=== PATIENT | male | born 1990 | race Caucasian/White ===

== ENCOUNTER 2024-02-02 13:54 | Emergency (ER) | payer OTHER ==
[2024-02-02 14:27] LABS: Appearance,Urine Clear (Clear); Bilirubin,Urine Negative (Negative); Blood,Urine Negative (Negative); Color,Urine Yellow; Glucose,Urine (UA) Negative (Negative); Ketones,Urine Negative (Negative); Leukocyte Esterase,Urine Negative (Negative); Nitrite,Urine Negative (Negative); Protein,Urine Negative (Negative); Specific Gravity,Urine 1.018 (1.001-1.035); Urobilinogen,Urine <2.0 mg/dL (<2.0)
--- NOTE | 2024-02-02 15:39 | US ---
EXAMINATION TYPE: US scrotum with doppler. Grayscale and color Doppler Duplex imaging performed of aneta emerson scrotum. DATE OF EXAM: 02/02/2024 COMPARISON: NONE CLINICAL INDICATION: Male, 33 years old with history of pain; has Crohn's "s disease edema. EXAM MEASUREMENTS: TESTICLES: Right Testicle: 3.9 x 2.2 x 2.5 cm Left Testicle: 3.5 x 2.0 x 3.1 cm EPIDIDYMIS HEAD: Right Epididymis: .9 x .8 x 1.3 cm Left Epididymis: .7 x .5 x .8 cm Doppler performed to assess for testicular vascularity; good bilateral. This may be slightly increase d on the right. Color flow and waveforms are seen. There is no evidence of testicular torsion. Presence of hydroceles: yes right side Presence of varicoceles: no IMPRESSION: Mild asymmetric increased vascular flow, correlate for epididymoorchitis. No evidence for intratesticular mass. Small right hydrocele. [facility], Workstation: [id number], 02/02/2024 3:36 PM
[2024-02-02] MEDS: SODIUM CHLORIDE 0.9% 1,000 ML IV STA (15:56)
[2024-02-02] MEDS: ACETAMINOPHEN TAB 500 MG TAB PO STA (15:57)
[2024-02-02 16:08] LABS: Anisocytosis Slight; Basophils % (A) 0 %; Eosinophils # (A) 0.2 k/uL (0-0.7); Eosinophils % (A) 2 %; HCT 39.5 % (39.0-53.0); HGB 12.8 gm/dL (13.0-17.5); Hypochromasia Slight; Lymphocytes # (A) 1.2 k/uL (1.0-4.8); Lymphocytes % (A) 13 %; MCH 26.2 pg (25.0-35.0); MCHC 32.4 g/dL (31.0-37.0); MCV 80.9 fL (80.0-100.0); Mean Platelet Volume 6.6; Microcytosis Slight; Monocytes # (A) 0.5 k/uL (0-1.0); Monocytes % (A) 5 %; Neutrophils # (A) 7.2 k/uL (1.3-7.7); Neutrophils % (A) 79 %; Platelet Count 371 k/uL (150-450); Poikilocytosis Slight; RBC 4.89 m/uL (4.30-5.90); RDW 16.4 % (11.5-15.5); WBC 9.1 k/uL (3.8-10.6)
[2024-02-02 16:19] LABS: ALT 28 U/L (4-49); AST 32 U/L (17-59); African American GFR (CKD) >90 (>60 ml/min/1.73 sqM); Albumin 4.4 g/dL (3.5-5.0); Alkaline Phosphatase 72 U/L (38-126); Amylase 57 U/L (30-110); Anion Gap 10 mmol/L; Blood Urea Nitrogen 11 mg/dL (9-20); Calcium 9.6 mg/dL (8.4-10.2); Carbon Dioxide 25 mmol/L (22-30); Chloride 106 mmol/L (98-107); Glucose 82 mg/dL (74-99); Lipase 261 U/L (23-300); Non-African American GFR(CKD) >90 (>60 ml/min/1.73 sqM); Potassium 4.1 mmol/L (3.5-5.1); Sodium 141 mmol/L (137-145); Total Bilirubin 0.5 mg/dL (0.2-1.3); Total Protein 7.9 g/dL (6.3-8.2)
--- NOTE | 2024-02-02 16:58 | ED ---
Male Urogenital HPI - General Chief complaint: Urogenital Stated complaint: Crohn's Flare/Swollen Testicles Time Seen by Provider: 02/02/24 16:57 Source: patient, RN notes reviewed Mode of arrival: ambulatory Limitations: no limitations - History of Present Illness Initial comments: 33-year-old male presented to the ER with a chief complaint of testicular swelling and abdominal pain. Patient has a past medical history significant of Crohn's disease and has a colostomy. Patient reports he is currently residing at [place] for alcohol abuse. He has been there approximately 2 weeks. Patient reports for the past week he has been endorsing abdominal discomfort. Patient reports he has been having normal output of colostomy. He denies any hematochezia or melena. States for the past day he has been noticing pain and swelling to right testicle. Denies any injuries or traumas. Denies any urinary complaints. Denies any concern of STDs. Patient denies any fevers or chills. No other complaints. - Related Data Previous Rx's Medication Instructions Recorded Amoxic-Pot Clav 875-125Mg 1 tab PO BID 1 Days #14 tab 02/02/24 [Augmentin 875-125] levoFLOXacin 500 mg PO DAILY #10 tab 02/02/24 Allergies Allergy/AdvReac Type Severity Reaction Status Date / Time No Known Allergies Allergy Verified 02/02/24 14:02 Review of Systems ROS Statement: Those systems with pertinent positive or pertinent negative responses have been documented in the HPI. ROS Other: All systems not noted in ROS Statement are negative. Past Medical History Additional Past Medical History / Comment(s): chrohns disease History of Any Multi-Drug Resistant Organisms: None Reported Additional Past Surgical History / Comment(s): colostomy Past Psychological History: No Psychological Hx Reported Smoking Status: Current every day smoker Past Alcohol Use History: Abuse Past Drug Use History: None Reported General Exam Limitations: no limitations General appearance: alert, in no apparent distress Respiratory exam: Present: normal lung sounds bilaterally. Absent: respiratory distress, wheezes, rales, rhonchi, stridor Cardiovascular Exam: Present: regular rate, normal rhythm, normal heart sounds. Absent: systolic murmur, diastolic murmur, rubs, gallop, clicks GI/Abdominal exam: Present: soft, tenderness (Left upper quadrant tenderness. colostomy in place), normal bowel sounds exam: Present: testicular tenderness (Right), other (There was an juan f thematous rash surrounding scrotal region which appears chronic in nature) Neurological exam: Present: alert, oriented X3, CN II-XII intact Skin exam: Present: warm, dry, intact, normal color. Absent: rash Course Vital Signs 02/02/24 02/02/24 14:00 19:05 Temperature 97.5 F L 98.1 F Pulse Rate 77 71 Respiratory 20 18 Rate Blood Pressure 119/81 126/79 O2 Sat by Pulse 99 98 Oximetry Medical Decision Making - Medical Decision Making Was pt. sent in by a medical professional or institution (, PA, SALES P[employer]TER, urgent care, hospital, or snf...) When possible be specific @ -[facility] for evaluation of testicular pain. Did you speak to anyone other than the patient for history (EMS, parent, family, police, friend...)? What history was obtained from this source @ -No Did you review nursing and triage notes (agree or disagree)? Why? @ -I reviewed and agree with nursing and triage notes Were old charts reviewed (outside hosp., previous admission, EMS record, old EKG, old radiological studies, urgent care reports/EKG's, snf records)? Report findings @ -No old charts were reviewed Differential Diagnosis (chest pain, altered mental status, abdominal pain women, abdominal pain men, vaginal bleeding, weakness, fever, dyspnea, syncope, headache, dizziness, GI bleed, back pain, seizure, CVA, palpatations, mental health, musculoskeletal)? @ -Differential Abdominal Pain Men:Appendicitis, cholecystitis, diverticulosis, ischemic bowel, pancreatitis, hepatitis, UTI, gastroenteritis, AAA, incarcerated hernia, bowel obstruction, constipation, inflammatory bowel, hepatitis, peptic ulcer disease, splenic infarction, perforated viscus, testicular torsion, this is not meant to be an all-inclusive list EKG interpreted by me (3pts min.). @ -None done X-rays interpreted by me (1pt min.). @ -None done CT interpreted by me (1pt min.). @ -CT abdomen pelvis showing left lower quadrant loop colostomy. There is mild wall thickening of the left upper quadrant suggestive of colitis. No evidence of organizing fluid collection or abscess. No free air. U/S interpreted by me (1pt. min.). @ -Scrotal ultrasound showing mild asymmetric increased vascular flow concerning of epididymoorchitis. No evidence of intratesticular mass. What testing was considered but not performed or refused? (CT, X-rays, U/S, labs)? Why? @ -None What meds were considered but not given or refused? Why? @ -None Did you discuss the management of the patient with other professionals (professionals i.e. Dr., PA, SAL[employer]TER, lab, RT, psych nurse, social services director, baking assistant, teacher, surveillance dual rate officer, case manager specialist)? Give summary @ -No Was smoking cessation discussed for >3mins.? @ -No Was critical care preformed (if so, how long)? @ -No Were there social determinants of health that impacted care today? How? (Homelessness, low income, unemployed, alcoholism, drug addiction, transportation, low edu. Level, literacy, decrease access to med. care, detention, rehab)? @ -Patient is currently residing at [place] for alcoholism. Was there de-escalation of care discussed even if they declined (Discuss DNR or withdrawal of care, Hospice)? DNR status @ -No What co-morbidities impacted this encounter? (DM, HTN, Smoking, COPD, CAD, Ca ncer, CVA, ARF, Chemo, Hep., AIDS, mental health diagnosis, sleep apnea, morbid obesity)? @ -Crohn's disease Was patient admitted / discharged? Hospital course, mention meds given and route, prescriptions, significant lab abnormalities, going to OR and other pertinent info. @ -Discharge. 33-year-old male presented to ER with a chief complaint of abdominal pain and testicular swelling/pain. Patient is currently residing at [place] for alcoholism. History and physical exam completed. Vitals within normal limits. Patient in no signs acute distress but does appear uncomfortable on exam. There is tenderness to the left upper quadrant with normal bowel sounds. No rebound or guarding. Laboratory studies obtained unremarkable. Urinalysis unremarkable. Gonorrhea, chlamydia and trichomonas urine test sent and pending. Scrotal ultrasound concerning of epididy moorchitis. No evidence of intratesticular mass. Patient will be treated with IV Rocephin prior to discharge and discharged with a prescription of levofloxacin for epididymitis. Due to abdominal pain, tenderness and patient's history of Crohn's disease CT abdomen pelvis obtained and concerning of colitis. Patient was started on Augmentin for colitis. Patient received symptomatic radha atment in the ER, with improvement. Strict return parameters discussed. Patient discharged in stable condition with follow-up to PCP and urology. Patient verbally expressed understanding agree with care plan. Patient is eager for discharge and asking for sandwich and chips prior to leaving. Case discussed with ED attending, Dr. Wallis. Undiagnosed new problem with uncertain prognosis? @ -No Drug Therapy requiring intensive monitoring for toxicity (Heparin, Nitro, Insulin, Cardizem)? @ -No Were any procedures done? @ -No Diagnosis/symptom? @ -Colitis/epididymootchitis Acute, or Chronic, or Acute on Chronic? @ -Acute Uncomplicated (without systemic symptoms) or Complicated (systemic symptoms)? @ -Complicated Side effects of treatment? @ -No Exacerbation, Progression, or Severe Exacerbation? @ -No Poses a threat to life or bodily function? How? (Chest pain, [place], [place], pneumonia, PE, COPD, DKA, ARF, appy, cholecystitis, CVA, Diverticulitis, Homicidal, Suicidal, threat to staff... and all critical care pts) @ -Yes, infection can lead to sepsis which can lead to endorgan dysfunction which is life-threatening. - Lab Data Result diagrams: 02/02/24 15:46 02/02/24 15:46 Lab Results 02/02/24 02/02/24 02/02/24 Range/Units 14:06 14:06 15:46 WBC 9.1 (3.8-10.6) k/uL RBC 4.89 (4.30-5.90) m/uL Hgb 12.8 L (13.0-17.5) gm/dL Hct 39.5 (39.0-53.0) % MCV 80.9 (80.0-100.0) fL MCH 26.2 (25.0-35.0) pg MCHC 32.4 (31.0-37.0) g/dL RDW 16.4 H (11.5-15.5) % Plt Count 371 (150-450) k/uL MPV 6.6 Neutrophils % 79 % Lymphocytes % 13 % Monocytes % 5 % Eosinophils % 2 % Basophils % 0 % Neutrophils # 7.2 (1.3-7.7) k/uL Lymphocytes # 1.2 (1.0-4.8) k/uL Monocytes # 0.5 (0-1.0) k/uL Eosinophils # 0.2 (0-0.7) k/uL Basophils # 0.0 (0-0.2) k/uL Hypochromasia Slight Poikilocytosis Slight Anisocytosis Slight Microcytosis Slight Sodium (137-145) mmol/L Potassium (3.5-5.1) mmol/L Chloride (98-107) mmol/L Carbon Dioxide (22-30) mmol/L Anion Gap mmol/L BUN (9-20) mg/dL Creatinine (0.66-1.25) mg/dL Est GFR (CKD-EPI)AfAm (>60 ml/min/1.73 sqM) Est GFR (CKD-EPI)NonAf (>60 ml/min/1.73 sqM) Glucose (74-99) mg/dL Plasma Lactic Acid Patrice (0.7-2.0) mmol/L Calcium (8.4-10.2) mg/dL Total Bilirubin (0.2-1.3) mg/dL AST (17-59) U/L ALT (4-49) U/L Alkaline Phosphatase (38-126) U/L Total Protein (6.3-8.2) g/dL Albumin (3.5-5.0) g/dL Amylase (30-110) U/L Lipase (23-300) U/L Urine Color Yellow Urine Appearance Clear (Clear) Urine pH 6.0 (5.0-8.0) Ur Specific [place] 1.018 (1.001-1.035) Urine Protein Negative (Negative) Urine Glucose (UA) Negative (Negative) Urine Ketones Negative (Negative) Urine Blood Negative (Negative) Urine Nitrite Negative (Negative) Urine Bilirubin Negative (Negative) Urine Urobilinogen <2.0 (<2.0) mg/dL Ur Leukocyte Esterase Negative (Negative) Chlamydia DNA (PCR) Negative (Negative) N.gonorrhoeae DNA Probe Negative (Negative) 02/02/24 02/02/24 Range/Units 15:46 15:46 WBC (3.8-10.6) k/uL RBC (4.30-5.90) m/uL Hgb (13.0-17.5) gm/dL Hct (39.0-53.0) % MCV (80.0-100.0) fL MCH (25.0-35.0) pg MCHC (31.0-37.0) g/dL RDW (11.5-15.5) % Plt Count (150-450) k/uL MPV Neutrophils % % Lymphocytes % % Monocytes % % Eosinophils % % Basophils % % Neutrophils # (1.3-7.7) k/uL Lymphocytes # (1.0-4.8) k/uL Monocytes # (0-1.0) k/uL Eosinophils # (0-0.7) k/uL Basophils # (0-0.2) k/uL Hypochromasia Poikilocytosis Anisocytosis Microcytosis Sodium 141 (137-145) mmol/L Potassium 4.1 (3.5-5.1) mmol/L Chloride 106 (98-107) mmol/L Carbon Dioxide 25 (22-30) mmol/L Anion Gap 10 mmol/L BUN 11 (9-20) mg/dL Creatinine 0.79 (0.66-1.25) mg/dL Est GFR (CKD-EPI)AfAm >90 (>60 ml/min/1.73 sqM) Est GFR (CKD-EPI)NonAf >90 (>60 ml/min/1.73 sqM) Glucose 82 (74-99) mg/dL Plasma Lactic Acid Patrice 0.7 (0.7-2.0) mmol/L Calcium 9.6 (8.4-10.2) mg/dL Total Bilirubin 0.5 (0.2-1.3) mg/dL AST 32 (17-59) U/L ALT 28 (4-49) U/L Alkaline Phosphatase 72 (38-126) U/L Total Protein 7.9 (6.3-8.2) g/dL Albumin 4.4 (3.5-5.0) g/dL Amylase 57 (30-110) U/L Lipase 261 (23-300) U/L Urine Color Urine Appearance (Clear) Urine pH (5.0-8.0) Ur Specific [place] (1.001-1.035) Urine Protein (Negative) Urine Glucose (UA) (Negative) Urine Ketones (Negative) Urine Blood (Negative) Urine Nitrite (Negative) Urine Bilirubin (Negative) Urine Urobilinogen (<2.0) mg/dL Ur Leukocyte Esterase (Negative) Chlamydia DNA (PCR) (Negative) N.gonorrhoeae DNA Probe (Negative) - Radiology Data Radiology results: report reviewed, image reviewed Disposition Clinical Impression: Epididymo-orchitis, Colitis Disposition: HOME SELF-CARE Condition: Stable Instructions (If sedation given, give patient instructions): Epididymo-Orchitis (ED) Additional Instructions: Complete full course of antibiotics. May take [id number] Profen Tylenol pain control. Return to ER for any new or worsening concerns. Prescriptions: Amoxic-Pot Clav 875-125Mg [Augmentin 875-125] 1 tab PO BID 1 Days #14 tab levoFLOXacin 500 mg PO DAILY #10 tab Is patient prescribed a controlled substance at d/c from ED?: No Referrals: None,Stated [Primary Care Provider] - 1-2 days Humberto Benítez MD [STAFF PHYSICIAN] - 1-2 days Forms: Area PCPs Time of Disposition: 18:42
--- NOTE | 2024-02-02 17:34 | CT ---
EXAMINATION TYPE: CT abdomen pelvis w con CT DLP: 781.7 mGycm, Automated exposure control for dose reduction was used. DATE OF EXAM: 02/02/2024 5:06 PM COMPARISON: CT abdomen pelvis most recent from CLINICAL INDICATION: Male, 33 years old with history of abd pain hx crohns; chrons TECHNIQUE: Axial CT abdomen pelvis w con;Sagittal and coronal reformats were created on a separate w orkstation. Contrast used:100 ml mL of Isovue 300 with IV Contrast, (none if empty) Oral contrast used: without Oral Contrast (none if empty) FINDINGS: LOWER CHEST: Unremarkable ABDOMEN LIVER: Unremarkable GALLBLADDER AND BILE DUCTS: Unremarkable. PANCREAS: Unremarkable. SPLEEN: Unremarkable. ADRENAL GLANDS: Unremarkable. KIDNEYS AND URETERS: No evidence of hydronephrosis or renal calculus. The ureters are unremarkable. PELVIS BLADDER: Unremarkable REPRODUCTIVE: Unremarkable. ABDOMEN & PELVIS STOMACH AND BOWEL: No evidence of bowel obstruction. Loop colostomy in the left abdomen.. Mild circum ferential wall thickening of the left upper quadrant colon. Colon is decompressed. Surgical suture se en in the ileum. PERITONEUM/RETROPERITONEUM: No evidence of pneumoperitoneum or free fluid. No organizing fluid collec tions. VASCULATURE: No evidence of aortic aneurysm. MUSCULOSKELETAL: No acute osseous abnormalities LYMPH NODES: No gross evidence for lymphadenopathy. SOFT TISSUE/ABDOMINAL WALL: Diastases of the rectus abdominis versus fat and bowel containing widemou th umbilical hernia. IMPRESSION: Left lower quadrant loop colostomy. No evidence for bowel obstruction. Mild wall thickening suggested of the left upper quadrant large bowel suggestive of colitis.. Postsurgical changes to the ileum. No evidence for organizing fluid collection suggest abscess. No free air. [facility], Workstation: [id number], 02/02/2024 5:31 PM
[2024-02-02] MEDS: cefTRIAXone IN SWFI 1,000 MG/10 ML SYRINGE IVP STA (19:01)
[2024-02-02 19:07] VITALS: BP 126/79; PULSE 71; RESP 18; TEMP 98.1
[2024-02-03 12:37] LABS: N. gonorrhoeae,PCR Negative (Negative)
[2024-02-03 12:41] LABS: C. trachomatis,PCR Negative (Negative)
== END 2024-02-02 19:08 | disposition home or self-care (01) ==
LOC: EC 13:54
DX: K50.90 Crohn's disease, unspecified, without complications (principal); N43.3 Hydrocele, unspecified; N45.3 Epididymo-orchitis; F17.200 Nicotine dependence, unspecified, uncomplicated
CPT/HCPCS: 36415; 80053; 82150; 83605; 83690; 85025; 81003; 87491; 87591; 87661; 93975; 76870; 74177; 99284; 96374; 96361; J0696; Q9967

== ENCOUNTER 2024-03-26 11:40 | Emergency (ER) | payer OTHER ==
--- NOTE | 2024-03-26 12:11 | ED ---
Abdominal Pain HPI - General Chief Complaint: Abdominal Pain Stated Complaint: Abd pain Time Seen by Provider: 03/26/24 11:55 Source: patient, RN notes reviewed Mode of arrival: ambulatory Limitations: no limitations - History of Present Illness Initial Comments: This is a 33-year-old male who presents to the emergency department for abdominal pain. States that it started yesterday. Patient has a history of Crohn's disease and states that it feels like a flareup. He has nausea but no vomiting. He does have a colostomy bag, states that the stool has been somewhat more runny than usual. Follows with GI in [place]. Complaint: abdominal pain - Related Data Previous Rx's Medication Instructions Recorded Amoxic-Pot Clav 875-125Mg 1 tab PO BID 1 Days #14 tab 02/02/24 [Augmentin 875-125] levoFLOXacin 500 mg PO DAILY #10 tab 02/02/24 Levofloxacin [Levaquin] 750 mg PO DAILY 7 Days #7 tab 03/26/24 metroNIDAZOLE [Flagyl] 500 mg PO TID 7 Days #21 tab 03/26/24 predniSONE 10 mg PO DIRECTED 12 Days #30 03/26/24 tab Allergies Allergy/AdvReac Type Severity Reaction Status Date / Time No Known Allergies Allergy Verified 03/26/24 12:10 Review of Systems ROS Statement: Those systems with pertinent positive or pertinent negative responses have been documented in the HPI. ROS Other: All systems not noted in ROS Statement are negative. Past Medical History Additional Past Medical History / Comment(s): chrohns disease History of Any Multi-Drug Resistant Organisms: None Reported Additional Past Surgical History / Comment(s): colostomy Past Psychological History: No Psychological Hx Reported Smoking Status: Current every day smoker Past Alcohol Use History: Abuse Past Drug Use History: None Reported General Exam Limitations: no limitations General appearance: alert, in no apparent distress Head exam: Present: atraumatic, normocephalic, normal inspection Respiratory exam: Present: normal lung sounds bilaterally. Absent: respiratory distress, wheezes, rales, rhonchi, stridor Cardiovascular Exam: Present: regular rate, normal rhythm, normal heart sounds. Absent: systolic murmur, diastolic murmur, rubs, gallop, clicks GI/Abdominal exam: Present: soft, tenderness (diffuse), normal bowel sounds. Absent: distended Neurological exam: Present: alert, oriented X3, CN II-XII intact Psychiatric exam: Present: normal affect, normal mood Skin exam: Present: warm, dry, intact, normal color. Absent: rash Course Vital Signs 03/26/24 03/26/24 03/26/24 12:10 14:00 17:41 Temperature 97.8 F Pulse Rate 69 76 74 Respiratory 18 20 20 Rate Blood Pressure 114/76 134/84 134/84 O2 Sat by Pulse 99 97 97 Oximetry Medical Decision Making - Medical Decision Making This is a 33-year-old male who presents to the emergency department for abdominal pain. Was pt. sent in by a medical professional or institution? @ -No Did you speak to anyone other than the patient for history? @ -No Did you review nursing and triage notes? @ -Yes, and I agree, it is accurate with regards to the patient's symptoms. Were old charts reviewed? @ -No Differential Diagnosis? @ -Differential Abdominal Pain Men: Appendicitis, cholecystitis, diverticulosis, ischemic bowel, pancreatitis, hepatitis, UTI, gastroenteritis, AAA, incarcerated hernia, bowel obstruction, constipation, inflammatory bowel, hepatitis, peptic ulcer disease, splenic infarction, perforated viscus, testicular torsion, this is not meant to be an all-inclusive list EKG interpreted by me (3pts min.)? @ -Not obtained X-rays interpreted by me (1pt min.)? @ -Not obtained CT interpreted by me (1pt min.)? @ -CT scan of the abdomen and pelvis obtained. My interpretation identifies no evidence of a bowel obstruction. U/S interpreted by me (1pt. min.)? @ -Not obtained What testing was considered but not performed? (CT, X-rays, U/S, labs)? Why? @ -None What meds were considered but not given? Why? @ -None Did you discuss the management of the patient with other professionals? @ -No Did you reconcile home meds? @ -No Was smoking cessation discussed for >3mins.? @ -No Was critical care preformed (if so, how long)? @ -No Were there social determinants of health that impacted care today? How? (Homelessness, low income, unemployed, alcoholism, drug addiction, transportation, low edu. Level, literacy, decrease access to med. care, custodial, rehab)? @ -No Was there de-escalation of care discussed even if they declined? (Discuss DNR or withdrawal of care, Hospice)? @ -No What co-morbidities impacted this encounter? (DM, HTN, Smoking, COPD, CAD, Cancer, CVA, Hep., AIDS, mental health diagnosis, sleep apnea, morbid obesity)? @ -Crohn's disease Was patient admitted / discharged? @ -Discharged. Lab work unremarkable. CT scan of the abdomen and pelvis reveals no acute process. Symptoms well-controlled in the emergency department. Patient advised that this feels like a typical Crohn's flareup and he is often treated with antibiotics and steroids. Levaquin and Flagyl prescribed for patient's current regimen along with steroid taper per patient's instruction. He was also sent home with colostomy supplies, which he is almost out of. Marilee nt discharged home in stable condition. Return precautions reviewed in depth, the patient is instructed to return to the emergency department with any new, worsening, or concerning symptoms. Patient verbalized understanding. Undiagnosed new problem with uncertain prognosis? @ -None Drug Therapy requiring intensive monitoring for toxicity (Heparin, Nitro, Ins ulin, Cardizem)? @ -None Were any procedures done? @ -None Diagnosis/symptom? @ -Crohn's colitis flareup Acute, or Chronic, or Acute on Chronic? @ -Acute on chronic Uncomplicated (without systemic symptoms) or Complicated (systemic symptoms)? @ -Uncomplicated Side effects of treatment? @ -None Exacerbation, Progression, or Severe Exacerbation] @ -Exacerbation Poses a threat to life or bodily function? @ -No - Lab Data Result diagrams: 03/26/24 13:59 03/26/24 13:59 Lab Results 03/26/24 03/26/24 03/26/24 Range/Units 13:59 13:59 13:59 WBC 10.0 (3.8-10.6) k/uL RBC 4.92 (4.30-5.90) m/uL Hgb 13.7 (13.0-17.5) gm/dL Hct 40.0 (39.0-53.0) % MCV 81.3 (80.0-100.0) fL MCH 27.8 (25.0-35.0) pg MCHC 34.2 (31.0-37.0) g/dL RDW 16.8 H (11.5-15.5) % Plt Count 352 (150-450) k/uL MPV 6.9 Neutrophils % 78 % Lymphocytes % 12 % Monocytes % 6 % Eosinophils % 2 % Basophils % 0 % Neutrophils # 7.8 H (1.3-7.7) k/uL Lymphocytes # 1.2 (1.0-4.8) k/uL Monocytes # 0.6 (0-1.0) k/uL Eosinophils # 0.2 (0-0.7) k/uL Basophils # 0.0 (0-0.2) k/uL Anisocytosis Slight Sodium 138 (137-145) mmol/L Potassium 3.9 (3.5-5.1) mmol/L Chloride 109 H (98-107) mmol/L Carbon Dioxide 24 (22-30) mmol/L Anion Gap 5 mmol/L BUN 5 L (9-20) mg/dL Creatinine 0.75 (0.66-1.25) mg/dL Est GFR (CKD-EPI)AfAm >90 (>60 ml/min/1.73 sqM) Est GFR (CKD-EPI)NonAf >90 (>60 ml/min/1.73 sqM) Glucose 79 (74-99) mg/dL Plasma Lactic Acid Patrice 1.4 (0.7-2.0) mmol/L Calcium 9.0 (8.4-10.2) mg/dL Total Bilirubin 0.8 (0.2-1.3) mg/dL AST 39 (17-59) U/L ALT 49 (4-49) U/L Alkaline Phosphatase 89 (38-126) U/L C-Reactive Protein <0.5 (<1.0) mg/dL Total Protein 7.4 (6.3-8.2) g/dL Albumin 4.2 (3.5-5.0) g/dL Amylase 44 (30-110) U/L Lipase 163 (23-300) U/L - Radiology Data Radiology results: report reviewed, image reviewed Disposition Clinical Impression: Abdominal pain, Crohn's colitis Disposition: HOME SELF-CARE Instructions (If sedation given, give patient instructions): Crohn Disease (ED) Additional Instructions: Return to the emergency department with any new, worsening, or concerning symptoms. Take both antibiotics as prescribed for 7 days. Follow with the prednisone taper over the course of 12 days. Review the list of primary care providers to become established for ongoing medical care. Prescriptions: metroNIDAZOLE [Flagyl] 500 mg PO TID 7 Days #21 tab Levofloxacin [Levaquin] 750 mg PO DAILY 7 Days #7 tab predniSONE 10 mg PO DIRECTED 12 Days #30 tab Is patient prescribed a controlled substance at d/c from ED?: No Referrals: [facility] [NON-STAFF] - 1-2 days [facility] [NON-STAFF] - 1-2 days None,Stated [Primary Care Provider] - 1-2 days Forms: Area PCPs Time of Disposition: 16:49
[2024-03-26 12:14] VITALS: TEMP 97.8
[2024-03-26] MEDS: SODIUM CHLORIDE 0.9% 1,000 ML IV STA (14:17)
[2024-03-26] MEDS: MORPHINE SULFATE 4 MG/ML SYRINGE IVP STA (14:19)
[2024-03-26 14:20] VITALS: BP 134/84; RESP 20
[2024-03-26 14:28] LABS: Anisocytosis Slight; Basophils % (A) 0 %; Eosinophils # (A) 0.2 k/uL (0-0.7); Eosinophils % (A) 2 %; HGB 13.7 gm/dL (13.0-17.5); Lymphocytes # (A) 1.2 k/uL (1.0-4.8); Lymphocytes % (A) 12 %; MCH 27.8 pg (25.0-35.0); MCHC 34.2 g/dL (31.0-37.0); MCV 81.3 fL (80.0-100.0); Mean Platelet Volume 6.9; Monocytes # (A) 0.6 k/uL (0-1.0); Monocytes % (A) 6 %; Neutrophils # (A) 7.8 k/uL (1.3-7.7); Neutrophils % (A) 78 %; Platelet Count 352 k/uL (150-450); RBC 4.92 m/uL (4.30-5.90); RDW 16.8 % (11.5-15.5)
[2024-03-26 14:59] LABS: ALT 49 U/L (4-49); AST 39 U/L (17-59); African American GFR (CKD) >90 (>60 ml/min/1.73 sqM); Albumin 4.2 g/dL (3.5-5.0); Alkaline Phosphatase 89 U/L (38-126); Amylase 44 U/L (30-110); Anion Gap 5 mmol/L; Blood Urea Nitrogen 5 mg/dL (9-20); C Reactive Protein <0.5 mg/dL (<1.0); Carbon Dioxide 24 mmol/L (22-30); Chloride 109 mmol/L (98-107); Glucose 79 mg/dL (74-99); Lipase 163 U/L (23-300); Non-African American GFR(CKD) >90 (>60 ml/min/1.73 sqM); Potassium 3.9 mmol/L (3.5-5.1); Sodium 138 mmol/L (137-145); Total Bilirubin 0.8 mg/dL (0.2-1.3); Total Protein 7.4 g/dL (6.3-8.2)
--- NOTE | 2024-03-26 15:43 | CT ---
EXAMINATION TYPE: CT abdomen pelvis w con DATE OF EXAM: 03/26/2024 COMPARISON: 02/02/2024 CLINICAL INDICATION: Male, 33 years old with history of Abdominal pain, acute, nonlocalized; PHH, abo antonette pain. chrons flare up TECHNIQUE: Performed without Oral Contrast and with IV Contrast, patient injected with 100ml mL of Isovue 300. CT DLP: 735.[address] CTDI: mGy Automated exposure control for dose reduction was used. FINDINGS: The lung bases are clear. The gallbladder is normal without distention, wall thickening, pericholecystic fluid or gallstones. T here is no biliary ductal dilatation. There is no focal mass or organomegaly involving the liver, pancreas, spleen or adrenal glands. There is no solid renal mass or hydronephrosis and there is homogeneous contrast enhancement of the r enal parenchyma. The caliber the abdominal aorta is normal is no retroperitoneal adenopathy or hemorr leonora. There is a colostomy in the left lower quadrant. There are postsurgical changes at the terminal ileum . There is no bowel obstruction, abscess, bowel wall thickening or inflammation within the mesentery. There is no free intraperitoneal air or fluid. No pelvic mass, free fluid, abscess or adenopathy. The osseous structures and soft tissues are intact. IMPRESSION: No acute changes within the abdomen or pelvis. [facility], , 03/26/2024 3:41 PM
[2024-03-26] MEDS: HYDROmorphone 1 MG/ML 1 ML SYRINGE IVP STA ×2 (15:56→17:16)
[2024-03-26] MEDS: ACET/COD 300 MG/30 MG STARTER PACK 6 TAB BTL PO STA (17:17)
[2024-03-26] MEDS: ONDANSETRON 4 MG ODT STARTER PACK 2 TAB BTL PO STA (17:17)
[2024-03-26] MEDS: methylPREDNISolone SOD SUCCI 125 MG/2 ML VIAL IV STA (17:18)
[2024-03-26 17:43] VITALS: PULSE 74
[2024-03-26 20:38] LABS: Erythrocyte Sedimentation Rate 17 mm/Hr (0-15)
== END 2024-03-26 17:43 | disposition home or self-care (01) ==
LOC: EC 11:40
DX: K50.10 Crohn's disease of large intestine without complications (principal); F17.200 Nicotine dependence, unspecified, uncomplicated; Z93.3 Colostomy status
CPT/HCPCS: 36415; 80053; 85652; 82150; 83605; 83690; 85025; 86140; 74177; 99284; 96374; 96375 ×2; 96376; 96361; J2270; J1171; S0119; Q9967; J2919

== ENCOUNTER 2024-04-10 06:30 | Emergency (ER) | payer OTHER ==
[2024-04-10 06:39] VITALS: TEMP 97.3
--- NOTE | 2024-04-10 07:02 | ED ---
Abdominal Pain HPI - General Chief Complaint: Abdominal Pain Stated Complaint: Chrones flare up Time Seen by Provider: 04/10/24 07:00 Source: patient, RN notes reviewed, old records reviewed Mode of arrival: ambulatory Limitations: no limitations - History of Present Illness Initial Comments: 33-year-old male with a past medical history significant for Crohn's disease presented to the ER for evaluation of abdominal pain. Patient follows up with a GI specialist out of [place] at [facility]. He states for the past week he is having uncontrollable intense abdominal pain. He has tried [id number] Tylenol without relief. He does report an ostomy he states he has been having "normal output". Patient does state he believes there was blood noted in his stool. He is unsure if this is from the stoma itself. He denies any melena, nausea, vomiting, fevers or chills. Patient has been having a normal appetite. Denies any urinary complaints, chest pain, shortness of breath no other complaints. - Related Data Previous Rx's Medication Instructions Recorded Amoxic-Pot Clav 875-125Mg 1 tab PO BID 1 Days #14 tab 02/02/24 [Augmentin 875-125] levoFLOXacin 500 mg PO DAILY #10 tab 02/02/24 Levofloxacin [Levaquin] 750 mg PO DAILY 7 Days #7 tab 03/26/24 metroNIDAZOLE [Flagyl] 500 mg PO TID 7 Days #21 tab 03/26/24 predniSONE 10 mg PO DIRECTED 12 Days #30 03/26/24 tab predniSONE [Deltasone] 40 mg PO DAILY #8 tab 04/10/24 Allergies Allergy/AdvReac Type Severity Reaction Status Date / Time No Known Allergies Allergy Verified 04/10/24 06:35 Review of Systems ROS Statement: Those systems with pertinent positive or pertinent negative responses have been documented in the HPI. ROS Other: All systems not noted in ROS Statement are negative. Past Medical History Additional Past Medical History / Comment(s): crohns disease History of Any Multi-Drug Resistant Organisms: None Reported, C-DIFF Date of last positivie culture/infection: 2020 MDRO Source:: stool Past Surgical History: Bowel Resection Additional Past Surgical History / Comment(s): colostomy, illeostomy and reversal Past Psychological History: No Psychological Hx Reported Smoking Status: Vaper Past Alcohol Use History: None Reported Past Drug Use History: None Reported General Exam Limitations: no limitations General appearance: alert, in no apparent distress Respiratory exam: Present: normal lung sounds bilaterally. Absent: respiratory distress, wheezes, rales, rhonchi, stridor Cardiovascular Exam: Present: regular rate, normal rhythm, normal heart sounds. Absent: systolic murmur, diastolic murmur, rubs, gallop, clicks GI/Abdominal exam: Present: soft, tenderness (Epigastric), normal bowel sounds, other (Ostomy left lower quadrant) Neurological exam: Present: alert, oriented X3, CN II-XII intact Skin exam: Present: warm, dry, intact, normal color. Absent: rash Course Vital Signs 04/10/24 04/10/24 04/10/24 06:36 07:31 08:30 Temperature 97.3 F L Pulse Rate 80 68 58 L Respiratory 20 16 16 Rate Blood Pressure 133/79 114/76 131/89 O2 Sat by Pulse 96 99 99 Oximetry 04/10/24 04/10/24 09:17 09:44 Temperature Pulse Rate 66 66 Respiratory 14 16 Rate Blood Pressure 124/84 124/84 O2 Sat by Pulse 98 98 Oximetry Medical Decision Making - Medical Decision Making Was pt. sent in by a medical professional or institution (, PA, [employer], urgent care, hospital, or detention...) When possible be specific @ -No Did you speak to anyone other than the patient for history (EMS, parent, family, police, friend...)? What history was obtained from this source @ -No Did you review nursing and triage notes (agree or disagree)? Why? @ -I reviewed and agree with nursing and triage notes Were old charts reviewed (outside hosp., previous admission, EMS record, old EKG, old radiological studies, urgent care reports/EKG's, detention records)? Report findings @ -ER visit reviewed from 03-26-2024. Patient seen here for abdominal pain. Workup completed and symptomatic control achieved. Patient discharged. Differential Diagnosis (chest pain, altered mental status, abdominal pain women, abdominal pain men, vaginal bleeding, weakness, fever, dyspnea, syncope, headache, dizziness, GI bleed, back pain, seizure, CVA, palpatations, mental health, musculoskeletal)? @ -Differential Abdominal Pain Men:Appendicitis, cholecystitis, diverticulosis, ischemic bowel, pancreatitis, hepatitis, UTI, gastroenteritis, AAA, incarcerated hernia, bowel obstruction, constipation, inflammatory bowel, hepatitis, peptic ulcer disease, splenic infarction, perforated viscus, testicular torsion, this is not meant to be an all-inclusive list EKG interpreted by me (3pts min.). @ -None done X-rays interpreted by me (1pt min.). @ -[None done CT interpreted by me (1pt min.). @ -[CT abdomen pelvis negative for acute intra-abdominal process. Postsurgical changes noted. U/S interpreted by me (1pt. min.). @ -None done What testing was considered but not performed or refused? (CT, X-rays, U/S, labs)? Why? @ -None What meds were considered but not given or refused? Why? @ -None Did you discuss the management of the patient with other professionals (professionals i.e. , PA, [employer], lab, RT, psych nurse, professor of social work, heel top lift splitter, teacher, bank secrecy act officer, registered nurse hh case manager)? Give summary @ -No Was smoking cessation discussed for >3mins.? @ -No Was critical care preformed (if so, how long)? @ -No Were there social determinants of health that impacted care today? How? (Homelessness, low income, unemployed, alcoholism, drug addiction, transportation, low edu. Level, literacy, decrease access to med. care, fci, rehab)? @ -No Was there de-escalation of care discussed even if they declined (Discuss DNR or withdrawal of care, Hospice)? DNR status @ -No What co-morbidities impacted this encounter? (DM, HTN, Smoking, COPD, CAD, Cancer, CVA, ARF, Chemo, Hep., AIDS, mental health diagnosis, sleep apnea, morbid obesity)? @ -Crohn's disease Was patient admitted / discharged? Hospital course, mention meds given and route, prescriptions, significant lab abnormalities, going to OR and other pertinent info. @ -Discharge. 33-year-old male with a past medical history of Crohn's disease presented to the ER with a chief complaint of abdominal pain. History and physical exam completed. Vitals within normal limits. Patient in no signs of acute distress nontoxic-appearing. Tenderness to epigastric region. There is an ostomy in the left lower quadrant. Normal bowel sounds with no rebound or guarding. Laboratory studies and CT abdomen pelvis will be performed given patient's medical history. CBC showing a hemoglobin of 12.5 which appears to be around patient's baseline. CMP remarkable for signs of mild dehydration with a BUN of 6. Hypokalemic at 3.1 which was supplemented with 40 mEq p.o. potassium. Patient was also discharged with 40 mEq of p.o. potassium to take following day. Urinalysis with trace protein for which patient received IV fluids. No signs of infection. Stool occult negative as patient reported possible blood in stool. Coagulation studies normal. CT abdomen pelvis negative. Patient received symptomatic control in the ER with IV Dilaudid. On reevaluation, patient reporting improvement of pain and is eager for discharge. At discharge patient given 60 mg p.o. prednisone and prescribed 4-day course of prednisone for Crohns flare. Discharged with Tylenol 3 starter pack. I advised close follow-up with PCP and GI. Strict return parameters discussed. Patient discharged in stable condition with follow-up to PCP. Patient verbally expressed understanding and agreement with care plan. Case discussed with ED attending, Dr. Puente. Undiagnosed new problem with uncertain prognosis? @ -[No Drug Therapy requiring intensive monitoring for toxicity (Heparin, Nitro, Insulin, Cardizem)? @ -No Were any procedures done? @ -No Diagnosis/symptom? @ -Abdominal pain/Crohn's disease/hypokalemia Acute, or Chronic, or Acute on Chronic? @ -Acute Uncomplicated (without systemic symptoms) or Complicated (systemic symptoms)? @ -Complicated Side effects of treatment? @ -No Exacerbation, Progression, or Severe Exacerbation? @ -No Poses a threat to life or bodily function? How? (Chest pain, [place], AR, pneumonia, PE, COPD, DKA, ARF, appy, cholecystitis, CVA, Diverticulitis, Homicidal, Suicidal, threat to staff... and all critical care pts) @ -Low at this time - Lab Data Result diagrams: 04/10/24 07:19 04/10/24 07:19 Lab Results 04/10/24 04/10/24 04/10/24 Range/Units 06:59 07:19 07:19 WBC 6.4 (3.8-10.6) k/uL RBC 4.50 (4.30-5.90) m/uL Hgb 12.5 L (13.0-17.5) gm/dL Hct 37.5 L (39.0-53.0) % MCV 83.3 (80.0-100.0) fL MCH 27.7 (25.0-35.0) pg MCHC 33.2 (31.0-37.0) g/dL RDW 16.2 H (11.5-15.5) % Plt Count 313 (150-450) k/uL MPV 6.6 Neutrophils % 69 % Lymphocytes % 15 % Monocytes % 8 % Eosinophils % 5 % Basophils % 1 % Neutrophils # 4.5 (1.3-7.7) k/uL Lymphocytes # 1.0 (1.0-4.8) k/uL Monocytes # 0.5 (0-1.0) k/uL Eosinophils # 0.3 (0-0.7) k/uL Basophils # 0.0 (0-0.2) k/uL Anisocytosis Slight PT (10.0-12.5) sec INR (<1.2) APTT (22.0-30.0) sec Sodium 140 (137-145) mmol/L Potassium 3.1 L (3.5-5.1) mmol/L Chloride 107 (98-107) mmol/L Carbon Dioxide 21 L (22-30) mmol/L Anion Gap 12 mmol/L BUN 6 L (9-20) mg/dL Creatinine 0.76 (0.66-1.25) mg/dL Est GFR (CKD-EPI)AfAm >90 (>60 ml/min/1.73 sqM) Est GFR (CKD-EPI)NonAf >90 (>60 ml/min/1.73 sqM) Glucose 79 (74-99) mg/dL Plasma Lactic Acid Patrice (0.7-2.0) mmol/L Calcium 9.0 (8.4-10.2) mg/dL Total Bilirubin 0.6 (0.2-1.3) mg/dL AST 33 (17-59) U/L ALT 33 (4-49) U/L Alkaline Phosphatase 78 (38-126) U/L Total Protein 7.0 (6.3-8.2) g/dL Albumin 4.1 (3.5-5.0) g/dL Amylase 40 (30-110) U/L Lipase 101 (23-300) U/L Urine Color Yellow Urine Appearance Clear (Clear) Urine pH 6.0 (5.0-8.0) Ur Specific [place] 1.024 (1.001-1.035) Urine Protein Trace H (Negative) Urine Glucose (UA) Negative (Negative) Urine Ketones Negative (Negative) Urine Blood Negative (Negative) Urine Nitrite Negative (Negative) Urine Bilirubin Negative (Negative) Urine Urobilinogen <2.0 (<2.0) mg/dL Ur Leukocyte Esterase Negative (Negative) Stool Occult Blood (Negative) 04/10/24 04/10/24 04/10/24 Range/Units 07:19 07:19 07:53 WBC (3.8-10.6) k/uL RBC (4.30-5.90) m/uL Hgb (13.0-17.5) gm/dL Hct (39.0-53.0) % MCV (80.0-100.0) fL MCH (25.0-35.0) pg MCHC (31.0-37.0) g/dL RDW (11.5-15.5) % Plt Count (150-450) k/uL MPV Neutrophils % % Lymphocytes % % Monocytes % % Eosinophils % % Basophils % % Neutrophils # (1.3-7.7) k/uL Lymphocytes # (1.0-4.8) k/uL Monocytes # (0-1.0) k/uL Eosinophils # (0-0.7) k/uL Basophils # (0-0.2) k/uL Anisocytosis PT 11.0 (10.0-12.5) sec INR 1.0 (<1.2) APTT 25.5 (22.0-30.0) sec Sodium (137-145) mmol/L Potassium (3.5-5.1) mmol/L Chloride (98-107) mmol/L Carbon Dioxide (22-30) mmol/L Anion Gap mmol/L BUN (9-20) mg/dL Creatinine (0.66-1.25) mg/dL Est GFR (CKD-EPI)AfAm (>60 ml/min/1.73 sqM) Est GFR (CKD-EPI)NonAf (>60 ml/min/1.73 sqM) Glucose (74-99) mg/dL Plasma Lactic Acid Patrice 1.9 (0.7-2.0) mmol/L Calcium (8.4-10.2) mg/dL Total Bilirubin (0.2-1.3) mg/dL AST (17-59) U/L ALT (4-49) U/L Alkaline Phosphatase (38-126) U/L Total Protein (6.3-8.2) g/dL Albumin (3.5-5.0) g/dL Amylase (30-110) U/L Lipase (23-300) U/L Urine Color Urine Appearance (Clear) Urine pH (5.0-8.0) Ur Specific [place] (1.001-1.035) Urine Protein (Negative) Urine Glucose (UA) (Negative) Urine Ketones (Negative) Urine Blood (Negative) Urine Nitrite (Negative) Urine Bilirubin (Negative) Urine Urobilinogen (<2.0) mg/dL Ur Leukocyte Esterase (Negative) Stool Occult Blood Negative (Negative) - Radiology Data Radiology results: report reviewed, image reviewed Disposition Clinical Impression: Crohn's colitis, Abdominal pain, Hypokalemia Disposition: HOME SELF-CARE Condition: Stable Instructions (If sedation given, give patient instructions): Crohn Disease (ED) Additional Instructions: Take potassium tablet tomorrow morning. Continue using [id number] ibuprofen and Tylenol for pain control. You may take Tylenol threes for extreme pain. Do not take regular Tylenol with Tylenol threes. Follow-up with PCP. Return to the ER for any new or worsening concerns. Prescriptions: predniSONE [Deltasone] 40 mg PO DAILY #8 tab Is patient prescribed a controlled substance at d/c from ED?: No Referrals: None,Stated [Primary Care Provider] - 1-2 days Natalia Blas MD [STAFF PHYSICIAN] - 1-2 days Forms: PH Area PCPs Time of Disposition: 09:21
[2024-04-10 07:32] LABS: Anisocytosis Slight; Basophils % (A) 1 %; Eosinophils # (A) 0.3 k/uL (0-0.7); Eosinophils % (A) 5 %; HCT 37.5 % (39.0-53.0); HGB 12.5 gm/dL (13.0-17.5); Lymphocytes % (A) 15 %; MCH 27.7 pg (25.0-35.0); MCHC 33.2 g/dL (31.0-37.0); MCV 83.3 fL (80.0-100.0); Mean Platelet Volume 6.6; Monocytes # (A) 0.5 k/uL (0-1.0); Monocytes % (A) 8 %; Neutrophils # (A) 4.5 k/uL (1.3-7.7); Neutrophils % (A) 69 %; Platelet Count 313 k/uL (150-450); RDW 16.2 % (11.5-15.5); WBC 6.4 k/uL (3.8-10.6)
[2024-04-10 07:35] LABS: Appearance,Urine Clear (Clear); Bilirubin,Urine Negative (Negative); Color,Urine Yellow; Glucose,Urine (UA) Negative (Negative); Ketones,Urine Negative (Negative); Protein,Urine Trace (Negative); Specific Gravity,Urine 1.024 (1.001-1.035)
[2024-04-10 07:36] LABS: Blood,Urine Negative (Negative); Leukocyte Esterase,Urine Negative (Negative); Nitrite,Urine Negative (Negative); Urobilinogen,Urine <2.0 mg/dL (<2.0)
[2024-04-10] MEDS: SODIUM CHLORIDE 0.9% 1,000 ML IV STA (07:37)
[2024-04-10] MEDS: HYDROmorphone 1 MG/ML 1 ML SYRINGE IVP STA ×2 (07:38→09:34)
[2024-04-10] MEDS: KETOROLAC 15 MG/ML 1 ML VIAL IVP STA (07:43)
[2024-04-10 07:44] LABS: ALT 33 U/L (4-49); AST 33 U/L (17-59); African American GFR (CKD) >90 (>60 ml/min/1.73 sqM); Albumin 4.1 g/dL (3.5-5.0); Alkaline Phosphatase 78 U/L (38-126); Amylase 40 U/L (30-110); Anion Gap 12 mmol/L; Blood Urea Nitrogen 6 mg/dL (9-20); Carbon Dioxide 21 mmol/L (22-30); Chloride 107 mmol/L (98-107); Glucose 79 mg/dL (74-99); Lipase 101 U/L (23-300); Non-African American GFR(CKD) >90 (>60 ml/min/1.73 sqM); Potassium 3.1 mmol/L (3.5-5.1); Sodium 140 mmol/L (137-145); Total Bilirubin 0.6 mg/dL (0.2-1.3)
[2024-04-10] MEDS: ONDANSETRON 4 MG/2 ML VIAL IVP STA (07:47)
--- NOTE | 2024-04-10 08:42 | CT ---
EXAMINATION TYPE: CT abdomen pelvis w con DATE OF EXAM: 04/10/2024 COMPARISON: 03/26/2024 CLINICAL INDICATION: Male, 33 years old with history of abd pain hx crohns; PHH, abd pain TECHNIQUE: Performed without Oral Contrast and with IV Contrast, patient injected with 100 mL of Isovue 300. CT DLP: 701.[address] CTDI: mGy Automated exposure control for dose reduction was used. FINDINGS: The lung bases are clear. The gallbladder is normal without distention, wall thickening, pericholecystic fluid or gallstones. T here is no biliary ductal dilatation. There is no focal mass or organomegaly involving the liver, pancreas, spleen or adrenal glands. There is no solid renal mass or hydronephrosis and there is homogeneous contrast enhancement of the r enal parenchyma. The caliber the abdominal aorta is normal is no retroperitoneal adenopathy or hemorr leonora. There is an ostomy in the left midabdomen and postsurgical changes in the terminal ileum. There is no bowel obstruction, inflammation or abscess. There is no free intraperitoneal air or fluid. No pelvic mass, free fluid, abscess or adenopathy. The osseous structures and soft tissues are intact. IMPRESSION: 1 postsurgical changes as described above. 2. No acute changes within the abdomen and pelvis. No interval change compared to previous. [facility], Workstation: [email or web address] 04/10/2024 8:40 AM
[2024-04-10 09:03] LABS: Partial Thromboplastin Time 25.5 sec (22.0-30.0)
[2024-04-10 09:20] VITALS: BP 124/84; PULSE 66
[2024-04-10] MEDS: predniSONE 20 MG TAB PO STA (09:36)
[2024-04-10] MEDS: POTASSIUM CHLORIDE ER 20 MEQ TAB.ER PO STA ×2 (09:37→09:40)
[2024-04-10] MEDS: ACET/COD 300 MG/30 MG STARTER PACK 6 TAB BTL PO STA (09:39)
[2024-04-10 09:46] VITALS: RESP 16
== END 2024-04-10 10:00 | disposition home or self-care (01) ==
LOC: EC 06:30
DX: K50.10 Crohn's disease of large intestine without complications (principal); E87.6 Hypokalemia; F17.290 Nicotine dependence, other tobacco product, uncomplicated
CPT/HCPCS: 99285; 96374; 96375 ×2; 96376; 96361; 36415; 80053; 82150; 83605; 83690; 85025; 85610; 85730; 82272; 81003; 74177; J2405; J1171; J1885; J7512; Q9967

== ENCOUNTER 2024-04-18 08:06 | Emergency (ER) | payer OTHER ==
[2024-04-18 08:15] VITALS: TEMP 97.4
[2024-04-18] MEDS: SODIUM CHLORIDE 0.9% 1,000 ML IV STA (08:43)
--- NOTE | 2024-04-18 08:53 | ED ---
General Adult HPI - General Chief complaint: Abdominal Pain Stated complaint: Abdominal Pain Time Seen by Provider: 04/18/24 08:07 Source: patient Mode of arrival: ambulatory Limitations: no limitations - History of Present Illness Initial comments: Dictation was produced using Pow[employer] dictation software. please excuse any grammatical, word or spelling errors. Chief Complaint: 33-year-old male presents to the ER for acute on chronic abdominal pain History of Present Illness: Patient 33-year-old male with history of severe Crohn's. Patient has ostomy that was performed several years ago. He has history of colectomy performed at [facility]. Patient here for acute on chronic abdominal pain. States that his stoma site hurts. States that the pain is moderate not as severe as it has been in the past. He was seen here in the emergency department 8 days ago for the same complaint. Had a CT scan at that time states that his pain is comparable. Denies any fever, chills or night sweats. He has had stoma output. Denies any nausea vomiting. No constitutional or systemic symptoms. The ROS documented in this emergency department record has been reviewed and confirmed by me. Those systems with pertinent positive or negative responses have been documented in the HPI. All other systems are other negative and/or noncontributory. - Related Data Previous Rx's Medication Instructions Recorded Amoxic-Pot Clav 875-125Mg 1 tab PO BID 1 Days #14 tab 02/02/24 [Augmentin 875-125] levoFLOXacin 500 mg PO DAILY #10 tab 02/02/24 Levofloxacin [Levaquin] 750 mg PO DAILY 7 Days #7 tab 03/26/24 metroNIDAZOLE [Flagyl] 500 mg PO TID 7 Days #21 tab 03/26/24 predniSONE 10 mg PO DIRECTED 12 Days #30 03/26/24 tab predniSONE [Deltasone] 40 mg PO DAILY #8 tab 04/10/24 Allergies Allergy/AdvReac Type Severity Reaction Status Date / Time No Known Allergies Allergy Verified 04/18/24 08:09 Review of Systems ROS Statement: Those systems with pertinent positive or pertinent negative responses have been documented in the HPI. ROS Other: All systems not noted in ROS Statement are negative. Past Medical History Additional Past Medical History / Comment(s): crohns disease History of Any Multi-Drug Resistant Organisms: None Reported, C-DIFF Date of last positivie culture/infection: 2020 MDRO Source:: stool Past Surgical History: Bowel Resection Additional Past Surgical History / Comment(s): colostomy, illeostomy and reversal Past Psychological History: No Psychological Hx Reported Smoking Status: Vaper Past Alcohol Use History: None Reported Past Drug Use History: None Reported General Exam - General Exam Comments Initial Comments: PHYSICAL EXAM: General Impression: Alert and oriented x3, not in acute distress HEENT: Normocephalic atraumatic, extra-ocular movements intact, pupils equal and reactive to light bilaterally, mucous membranes moist. Cardiovascular: Heart regular rate and rhythm Chest: Able to complete full sentences, no retractions, no tachypnea Abdomen: abdomen soft, non-tender, non-distended, no organomegaly, stoma site is well-appearing. No skin breakdown. There is good nonbloody output in the stoma bag. Stoma is pink and viable appearing Musculoskeletal: Pulses present and equal in all extremities, no peripheral edema Motor: no focal deficits noted Neurological: CN II-XII grossly intact, no focal motor or sensory deficits noted Skin: Intact with no visualized rashes Psych: Normal affect and mood Limitations: no limitations Course Vital Signs 04/18/24 04/18/24 08:09 09:38 Temperature 97.4 F L Pulse Rate 88 79 Respiratory 18 18 Rate Blood Pressure 134/88 140/90 O2 Sat by Pulse 95 98 Oximetry Medical Decision Making - Medical Decision Making Was pt. sent in by a medical professional or institution (, PA, TRANSLATOR AND INTERPRETER, urgent care, hospital, or fpc...) When possible be specific @ -No Did you speak to anyone other than the patient for history (EMS, parent, family, police, friend...)? What history was obtained from this source @ -No Did you review nursing and triage notes (agree or disagree)? Why? @ -I reviewed and agree with nursing and triage notes Were old charts reviewed (outside hosp., previous admission, EMS record, old EKG, old radiological studies, urgent care reports/EKG's, fpc records)? Report findings @ -No old charts were reviewed Differential Diagnosis (chest pain, altered mental status, abdominal pain women, abdominal pain men, vaginal bleeding, musculoskeletal, weakness, fever, dy spnea, syncope, headache, dizziness, GI bleed, back pain, seizure, CVA, palpatations, mental health)? @ -Differential Abdominal Pain Men: Appendicitis, cholecystitis, diverticulosis, ischemic bowel, pancreatitis, hepatitis, UTI, gastroenteritis, AAA, incarcerated hernia, bowel obstruction, constipation, inflammatory bowel, hepatitis, peptic ulcer disease, splenic infarction, perforated viscus, testicular torsion, this is not meant to be an all-inclusive list EKG interpreted by me (3pts min.). @ -None done X-rays interpreted by me (1pt min.). @ -None done CT interpreted by me (1pt min.). @ -None done U/S interpreted by me (1pt. min.). @ -None done What testing was considered but not performed or refused? (CT, X-rays, U/S, labs)? Why? @ -None What meds were considered but not given or refused? Why? @ -None Was smoking cessation discussed for >3mins.? @ -No Were there social determinants of health that impacted care today? How? (Homelessness, low income, unemployed, alcoholism, drug addiction, transportation, low edu. Level, literacy, decrease access to med. care, penitentiary, rehab)? @ -No Was there de-escalation of care discussed even if they declined (Discuss DNR or withdrawal of care, Hospice)? DNR status @ -No What co-morbidities impacted this encounter? (DM, HTN, Smoking, COPD, CAD, Cancer, CVA, ARF, Chemo, Hep., AIDS, mental health diagnosis, sleep apnea, morbid obesity)? @ -History of Crohn's disease and stoma and colectomy Was patient admitted / discharged? Hospital course, mention meds given and route, prescriptions, significant lab abnormalities, going to OR and other pertinent info. @ -33-year-old male presents emergency department for acute on chronic abd ominal pain he has history of Crohn's disease colectomy and stoma. Patient well-appearing at the bedside he has soft nonsurgical abdomen. Stoma appears to be well. Laboratory evaluation obtained. CBC metabolic panel is unremarkable. Patient given analgesics with resolution of his symptoms. At this point no indication for CT imaging at this time. Patient agreeable to discharge. Did you discuss the management of the patient with other professionals (professionals i.e. , PA, TRANSLATOR AND INTERPRETER, lab, RT, psych nurse, social work coordinator, lithographic press operator, teacher, custodial officer, business case analyst)? Give summary @ -No Was critical care preformed (if so, how long)? @ -No Undiagnosed new problem with uncertain prognosis? @ -No Drug Therapy requiring intensive monitoring for toxicity (Heparin, Nitro, Insulin, Cardizem)? @ -No Were any procedures done? @ -No Diagnosis/symptom? Acute, or Chronic, or Acute on Chronic? Uncomplicated (without systemic symptoms) or Complicated (systemic symptoms)? @ -Acute on chronic abdominal pain Side effects of treatment? @ -No Exacerbation, Progression, or Severe Exacerbation? @ -No Poses a threat to life or bodily function? How? (Chest pain, [place], [place], pneumonia, PE, COPD, DKA, ARF, appy, cholecystitis, CVA, Diverticulitis, Homicidal, Suicidal, threat to staff... and all critical care pts) @ -No - Lab Data Result diagrams: 04/18/24 08:51 04/18/24 08:51 Lab Results 04/18/24 04/18/24 04/18/24 Range/Units 08:51 08:51 08:51 WBC 4.3 (3.8-10.6) k/uL RBC 4.84 (4.30-5.90) m/uL Hgb 13.9 (13.0-17.5) gm/dL Hct 40.7 (39.0-53.0) % MCV 84.1 (80.0-100.0) fL MCH 28.6 (25.0-35.0) pg MCHC 34.1 (31.0-37.0) g/dL RDW 15.9 H (11.5-15.5) % Plt Count 365 (150-450) k/uL MPV 6.8 Neutrophils % 71 % Lymphocytes % 20 % Monocytes % 7 % Eosinophils % 0 % Basophils % 0 % Neutrophils # 3.1 (1.3-7.7) k/uL Lymphocytes # 0.9 L (1.0-4.8) k/uL Monocytes # 0.3 (0-1.0) k/uL Eosinophils # 0.0 (0-0.7) k/uL Basophils # 0.0 (0-0.2) k/uL Sodium 139 (137-145) mmol/L Potassium 3.7 (3.5-5.1) mmol/L Chloride 106 (98-107) mmol/L Carbon Dioxide 25 (22-30) mmol/L Anion Gap 8 mmol/L BUN 12 (9-20) mg/dL Creatinine 0.67 (0.66-1.25) mg/dL Est GFR (CKD-EPI)AfAm >90 (>60 ml/min/1.73 sqM) Est GFR (CKD-EPI)NonAf >90 (>60 ml/min/1.73 sqM) Glucose 88 (74-99) mg/dL Plasma Lactic Acid Patrice 1.3 (0.7-2.0) mmol/L Calcium 9.1 (8.4-10.2) mg/dL Total Bilirubin 1.0 (0.2-1.3) mg/dL AST 42 (17-59) U/L ALT 30 (4-49) U/L Alkaline Phosphatase 80 (38-126) U/L Total Protein 7.6 (6.3-8.2) g/dL Albumin 4.5 (3.5-5.0) g/dL Lipase 56 (23-300) U/L Disposition Clinical Impression: Abdominal pain Disposition: HOME SELF-CARE Condition: Good Instructions (If sedation given, give patient instructions): Abdominal Pain (ED) Is patient prescribed a controlled substance at d/c from ED?: No Referrals: None,Stated [Primary Care Provider] - 1-2 days Time of Disposition: 11:40
[2024-04-18] MEDS: HYDROmorphone 1 MG/ML 1 ML SYRINGE IVP STA ×2 (08:56→11:24)
[2024-04-18 09:13] LABS: Basophils % (A) 0 %; Eosinophils % (A) 0 %; HCT 40.7 % (39.0-53.0); HGB 13.9 gm/dL (13.0-17.5); Lymphocytes # (A) 0.9 k/uL (1.0-4.8); Lymphocytes % (A) 20 %; MCH 28.6 pg (25.0-35.0); MCHC 34.1 g/dL (31.0-37.0); MCV 84.1 fL (80.0-100.0); Mean Platelet Volume 6.8; Monocytes # (A) 0.3 k/uL (0-1.0); Monocytes % (A) 7 %; Neutrophils # (A) 3.1 k/uL (1.3-7.7); Neutrophils % (A) 71 %; Platelet Count 365 k/uL (150-450); RBC 4.84 m/uL (4.30-5.90); RDW 15.9 % (11.5-15.5); WBC 4.3 k/uL (3.8-10.6)
[2024-04-18 09:48] LABS: ALT 30 U/L (4-49); AST 42 U/L (17-59); African American GFR (CKD) >90 (>60 ml/min/1.73 sqM); Albumin 4.5 g/dL (3.5-5.0); Alkaline Phosphatase 80 U/L (38-126); Anion Gap 8 mmol/L; Blood Urea Nitrogen 12 mg/dL (9-20); Calcium 9.1 mg/dL (8.4-10.2); Carbon Dioxide 25 mmol/L (22-30); Chloride 106 mmol/L (98-107); Glucose 88 mg/dL (74-99); Lipase 56 U/L (23-300); Non-African American GFR(CKD) >90 (>60 ml/min/1.73 sqM); Potassium 3.7 mmol/L (3.5-5.1); Sodium 139 mmol/L (137-145); Total Protein 7.6 g/dL (6.3-8.2)
[2024-04-18 11:57] VITALS: BP 156/92; PULSE 68; RESP 20
== END 2024-04-18 11:57 | disposition home or self-care (01) ==
LOC: EC 08:06
DX: R10.9 Unspecified abdominal pain (principal); F17.290 Nicotine dependence, other tobacco product, uncomplicated
CPT/HCPCS: 36415; 80053; 83605; 83690; 85025; 99284; 96374; 96376; 96361; J1171

== ENCOUNTER 2024-05-01 18:20 | Emergency (ER) | payer OTHER ==
--- NOTE | 2024-05-01 19:01 | ED ---
Abdominal Pain HPI - General Source: patient, RN notes reviewed Mode of arrival: ambulatory Limitations: no limitations - History of Present Illness MD Complaint: abdominal pain Onset/Timin -: days(s) <Ace Del Rosario - Last Filed: 05/01/24 22:42> <Sebastian Crooks - Last Filed: 05/02/24 20:24> - General Stated Complaint: abd pain Time Seen by Provider: 05/01/24 18:34 - History of Present Illness Initial Comments: This is a 33-year-old male with history of Crohn's and colostomy complaining of possible Crohn's flareup x 10 days. Patient endorses significant abdominal pain (12/12) with associated nausea. Patient also mentions some stoma pain possibly caused by colostomy hardware. Denies fever, chills, chest pain, dyspnea, vomiting, melena, dizziness, urinary symptoms. (Ace Del Rosario) - Related Data Previous Rx's Medication Instructions Recorded Amoxic-Pot Clav 875-125Mg 1 tab PO BID 1 Days #14 tab 02/02/24 [Augmentin 875-125] levoFLOXacin 500 mg PO DAILY #10 tab 02/02/24 Levofloxacin [Levaquin] 750 mg PO DAILY 7 Days #7 tab 03/26/24 metroNIDAZOLE [Flagyl] 500 mg PO TID 7 Days #21 tab 03/26/24 predniSONE 10 mg PO DIRECTED 12 Days #30 03/26/24 tab predniSONE [Deltasone] 40 mg PO DAILY #8 tab 04/10/24 predniSONE [Deltasone] 40 mg PO DAILY #8 tab 05/02/24 Allergies Allergy/AdvReac Type Severity Reaction Status Date / Time No Known Allergies Allergy Verified 05/01/24 19:00 Review of Systems ROS Other: All systems not noted in ROS Statement are negative. <Ace Del Rosario - Last Filed: 05/01/24 22:42> ROS Other: All systems not noted in ROS Statement are negative. <Sebastian Crooks - Last Filed: 05/02/24 20:24> ROS Statement: Those systems with pertinent positive or pertinent negative responses have been documented in the HPI. Past Medical History Additional Past Medical History / Comment(s): crohns disease History of Any Multi-Drug Resistant Organisms: None Reported, C-DIFF Date of last positivie culture/infection: 2020 MDRO Source:: stool Past Surgical History: Bowel Resection Additional Past Surgical History / Comment(s): colostomy, illeostomy and reversal Past Psychological History: No Psychological Hx Reported Smoking Status: Vaper Past Alcohol Use History: None Reported Past Drug Use History: None Reported <CarinAce - Last Filed: 05/01/24 22:42> General Exam General appearance: alert, in no apparent distress Head exam: Present: atraumatic, normocephalic, normal inspection Eye exam: Present: normal appearance, PERRL, EOMI. Absent: scleral icterus, conjunctival injection, periorbital swelling ENT exam: Present: normal exam, mucous membranes moist Neck exam: Present: normal inspection. Absent: tenderness, meningismus, lymphadenopathy Respiratory exam: Present: normal lung sounds bilaterally. Absent: respiratory distress, wheezes, rales, rhonchi, stridor Cardiovascular Exam: Present: regular rate, normal rhythm, normal heart sounds. Absent: systolic murmur, diastolic murmur, rubs, gallop, clicks GI/Abdominal exam: Present: soft, tenderness (Tenderness without guarding noted in epigastric region), hyperactive bowel sounds, other (LLQ ostomy site shows prolapse with increased erythema within colostomy bag). Absent: distended, guarding, rebound, rigid Extremities exam: Present: normal inspection, full ROM, normal capillary refill. Absent: tenderness, pedal edema, joint swelling, calf tenderness Back exam: Present: normal inspection Neurological exam: Present: alert, oriented X3, CN II-XII intact Psychiatric exam: Present: normal affect, normal mood Skin exam: Present: warm, dry, intact, normal color. Absent: rash <CarinAce - Last Filed: 05/01/24 22:42> Course Vital Signs 05/01/24 05/02/24 18:59 00:55 Temperature 98.4 F 97.7 F Pulse Rate 72 67 Respiratory 20 18 Rate Blood Pressure 135/90 150/96 O2 Sat by Pulse 99 98 Oximetry Medical Decision Making - Lab Data Result diagrams: 05/01/24 19:50 05/01/24 19:50 <Mary Del Rosarioling - Last Filed: 05/01/24 22:42> - Lab Data Result diagrams: 05/01/24 19:50 12/28/24 19:50 <Sebastian Crooks - Last Filed: 05/02/24 20:24> - Medical Decision Making Was pt. sent in by a medical professional or institution (, ORQUIDEA, EDITORIAL MANAGER, urgent care, hospital, or residential...) When possible be specific @ -[No] Did you speak to anyone other than the patient for history (EMS, parent, family, police, friend...)? What history was obtained from this source @ -[No] Did you review nursing and triage notes (agree or disagree)? Why? @ -[I reviewed and agree with nursing and triage notes] Were old charts reviewed (outside hosp., previous admission, EMS record, old EKG, old radiological studies, urgent care reports/EKG's, residential records)? Report findings @ -[No old charts were reviewed] Differential Diagnosis (chest pain, altered mental status, abdominal pain women, abdominal pain men, vaginal bleeding, weakness, fever, dyspnea, syncope, headache, dizziness, GI bleed, back pain, seizure, CVA, palpatations, mental health, musculoskeletal)? @ -Differential Abdominal Pain Men: Appendicitis, cholecystitis, diverticulosis, ischemic bowel, pancreatitis, hepatitis, UTI, gastroenteritis, AAA, incarcerated hernia, bowel obstruction, constipation, inflammatory bowel, hepatitis, peptic ulcer disease, splenic infarction, perforated viscus, testicular torsion, this is not meant to be an all-inclusive list EKG interpreted by me (3pts min.). @ -Not done X-rays interpreted by me (1pt min.). @ -[None done] CT interpreted by me (1pt min.). @ -[None done] U/S interpreted by me (1pt. min.). @ -[None done] What testing was considered but not performed or refused? (CT, X-rays, U/S, labs)? Why? @ -[None] What meds were considered but not given or refused? Why? @ -[None] Did you discuss the management of the patient with other professionals (professionals i.e. ORQUIDEA Hummel, EDITORIAL MANAGER, lab, RT, psych nurse, healthcare social worker, criminal lawyer, teacher, civil preparedness officer, case management specialist)? Give summary @ -[No] Was smoking cessation discussed for >3mins.? @ -[No] Was critical care preformed (if so, how long)? @ -[No] Were there social determinants of health that impacted care today? How? (Homelessness, low income, unemployed, alcoholism, drug addiction, transportation, low edu. Level, literacy, decrease access to med. care, [facility], rehab)? @ -[No] Was there de-escalation of care discussed even if they declined (Discuss DNR or withdrawal of care, Hospice)? DNR status @ -[No] What co-morbidities impacted this encounter? (DM, HTN, Smoking, COPD, CAD, Cancer, CVA, ARF, Chemo, Hep., AIDS, mental health diagnosis, sleep apnea, morbid obesity)? @ -Crohn's disease, colectomy Was patient admitted / discharged? Hospital course, mention meds given and route, prescriptions, significant lab abnormalities, going to OR and other pertinent info. @ -Lab work including lactic acid, amylase and lipase unremarkable. Patient given normal saline, Zofran, Solu-Medrol and Dilaudid for pain and nausea. Undiagnosed new problem with uncertain prognosis? @ -[No] Drug Therapy requiring intensive monitoring for toxicity (Heparin, Nitro, Insulin, Cardizem)? @ -[No] Were any procedures done? @ -[No] Diagnosis/symptom? @ -[default] Acute, or Chronic, or Acute on Chronic? @ -Acute Uncomplicated (without systemic symptoms) or Complicated (systemic symptoms)? @ -Uncomplicated Side effects of treatment? @ -[No] Exacerbation, Progression, or Severe Exacerbation? @ -[No] Poses a threat to life or bodily function? How? (Chest pain, USA, [place], pneumonia, PE, COPD, DKA, ARF, appy, cholecystitis, CVA, Diverticulitis, Homicidal, Suicidal, threat to staff... and all critical care pts) @ -[No] (Ace Del Rosario) Patient was signed out to me pending CT results. CT shows minimal wall thickening with some surrounding fat stranding involving the descending colon just before the ostomy concerning for colitis. No evidence for bowel obstruction. Patient's labs are grossly unremarkable. Patient is treated with pain medication and provided with prednisone for home. He was given Solu-Medrol 125 while he was here as well. He is instructed to follow-up with GI and he is provided with a referral to GI in the area as his previous GI is out in [place]. Follow-up with PCP. Report back to ER with any new or worsening symptoms. Discussed return parameters and answered all questions. Patient conveyed verbal understanding and agreed to the plan. I discussed this case in detail with my attending Dr. Severino ([facility]) - Lab Data Lab Results 05/01/24 05/01/24 05/01/24 Range/Units 19:50 19:50 19:50 WBC 8.2 (3.8-10.6) k/uL RBC 4.92 (4.30-5.90) m/uL Hgb 14.3 (13.0-17.5) gm/dL Hct 41.9 (39.0-53.0) % MCV 85.1 (80.0-100.0) fL MCH 29.0 (25.0-35.0) pg MCHC 34.1 (31.0-37.0) g/dL RDW 15.1 (11.5-15.5) % Plt Count 344 (150-450) k/uL MPV 7.4 Neutrophils % 72 % Lymphocytes % 16 % Monocytes % 8 % Eosinophils % 3 % Basophils % 1 % Neutrophils # 6.0 (1.3-7.7) k/uL Lymphocytes # 1.3 (1.0-4.8) k/uL Monocytes # 0.6 (0-1.0) k/uL Eosinophils # 0.2 (0-0.7) k/uL Basophils # 0.0 (0-0.2) k/uL Poikilocytosis Slight Sodium 140 (137-145) mmol/L Potassium 3.9 (3.5-5.1) mmol/L Chloride 104 (98-107) mmol/L Carbon Dioxide 25 (22-30) mmol/L Anion Gap 11 mmol/L BUN 10 (9-20) mg/dL Creatinine 0.82 (0.66-1.25) mg/dL Est GFR (CKD-EPI)AfAm >90 (>60 ml/min/1.73 sqM) Est GFR (CKD-EPI)NonAf >90 (>60 ml/min/1.73 sqM) Glucose 86 (74-99) mg/dL Plasma Lactic Acid Patrice 1.1 (0.7-2.0) mmol/L Calcium 9.5 (8.4-10.2) mg/dL Total Bilirubin 0.6 (0.2-1.3) mg/dL AST 37 (17-59) U/L ALT 39 (4-49) U/L Alkaline Phosphatase 90 (38-126) U/L C-Reactive Protein 0.6 (<1.0) mg/dL Total Protein 8.0 (6.3-8.2) g/dL Albumin 4.8 (3.5-5.0) g/dL Amylase 48 (30-110) U/L Lipase 167 (23-300) U/L Disposition <Ace Del Rosario - Last Filed: 05/01/24 22:42> Is patient prescribed a controlled substance at d/c from ED?: No Time of Disposition: 00:30 <Sebastian Crooks - Last Filed: 05/02/24 20:24> Clinical Impression: Crohn disease Disposition: HOME SELF-CARE Condition: Good Instructions (If sedation given, give patient instructions): Crohn Disease (ED) Additional Instructions: Follow-up with PCP and GI. Report back to ER with any new or worsening symptoms. Prescriptions: predniSONE [Deltasone] 40 mg PO DAILY #8 tab Referrals: None,Stated [Primary Care Provider] - 1-2 days Natalia Blas MD [STAFF PHYSICIAN] - 1-2 days Mauricio Bishop MD [STAFF PHYSICIAN] - 1-2 days
[2024-05-01 20:11] LABS: Basophils % (A) 1 %; Eosinophils # (A) 0.2 k/uL (0-0.7); Eosinophils % (A) 3 %; HCT 41.9 % (39.0-53.0); HGB 14.3 gm/dL (13.0-17.5); Lymphocytes # (A) 1.3 k/uL (1.0-4.8); Lymphocytes % (A) 16 %; MCHC 34.1 g/dL (31.0-37.0); MCV 85.1 fL (80.0-100.0); Mean Platelet Volume 7.4; Monocytes # (A) 0.6 k/uL (0-1.0); Monocytes % (A) 8 %; Neutrophils % (A) 72 %; Platelet Count 344 k/uL (150-450); Poikilocytosis Slight; RBC 4.92 m/uL (4.30-5.90); RDW 15.1 % (11.5-15.5); WBC 8.2 k/uL (3.8-10.6)
[2024-05-01 20:33] LABS: ALT 39 U/L (4-49); AST 37 U/L (17-59); African American GFR (CKD) >90 (>60 ml/min/1.73 sqM); Albumin 4.8 g/dL (3.5-5.0); Alkaline Phosphatase 90 U/L (38-126); Amylase 48 U/L (30-110); Anion Gap 11 mmol/L; Blood Urea Nitrogen 10 mg/dL (9-20); C Reactive Protein 0.6 mg/dL (<1.0); Calcium 9.5 mg/dL (8.4-10.2); Carbon Dioxide 25 mmol/L (22-30); Chloride 104 mmol/L (98-107); Glucose 86 mg/dL (74-99); Lipase 167 U/L (23-300); Non-African American GFR(CKD) >90 (>60 ml/min/1.73 sqM); Potassium 3.9 mmol/L (3.5-5.1); Sodium 140 mmol/L (137-145); Total Bilirubin 0.6 mg/dL (0.2-1.3)
[2024-05-01] MEDS: HYDROmorphone 0.5 MG/0.5 ML SYRINGE IVP STA (21:46)
[2024-05-01] MEDS: methylPREDNISolone SOD SUCCI 125 MG/2 ML VIAL IV STA (21:48)
[2024-05-01] MEDS: ONDANSETRON 4 MG/2 ML VIAL IVP STA (21:51)
[2024-05-01] MEDS: SODIUM CHLORIDE 0.9% 1,000 ML IV STA (21:52)
--- NOTE | 2024-05-01 23:51 | CT ---
EXAMINATION TYPE: CT abdomen pelvis w con CT DLP: 746 mGycm, Automated exposure control for dose reduction was used. DATE OF EXAM: 05/01/2024 11:26 PM COMPARISON: Multiple CT abdomen pelvis with most recent 04/10/2024 CLINICAL INDICATION:Male, 33 years old with history of Abdominal pain, history of Crohn's; Pt states having abd pain for last couple of weeks. Pt gets worst when he is out of steroids. TECHNIQUE: Standard CT of the abdomen and pelvis following the administration of 100 cc of Isovue 3 00 IV contrast material. Coronal and sagittal reformats were performed. FINDINGS: LOWER CHEST: Unremarkable ABDOMEN LIVER: Unremarkable GALLBLADDER AND BILE DUCTS: Unremarkable. PANCREAS: Unremarkable. SPLEEN: Unremarkable. ADRENAL GLANDS: Unremarkable. KIDNEYS AND URETERS: No evidence of hydronephrosis or renal calculus. The kidneys enhance symmetrical ly. Contrast is demonstrated within both collecting systems on the delayed phase. PELVIS BLADDER: Unremarkable REPRODUCTIVE: Unremarkable. ABDOMEN & PELVIS STOMACH AND BOWEL: Stomach and duodenum are unremarkable. Left lower quadrant diverting colostomy. Po stsurgical changes involving the terminal ileum. There is some minimal wall thickening or stranding o f fat stranding involving the descending colon just before the ostomy. No evidence of bowel obstructi on. PERITONEUM: No evidence of pneumoperitoneum or free fluid. VASCULATURE: No evidence of aortic aneurysm. MUSCULOSKELETAL: No acute osseous abnormalities. Similar nonspecific patchy sclerotic appearance to t he proximal left femur. LYMPH NODES: No evidence for lymphadenopathy. SOFT TISSUE/ABDOMINAL WALL: Diastases of the rectus abdominis muscle versus and small bowel wide mout h umbilical hernia. IMPRESSION: Minimal wall thickening with some surrounding fat stranding involving the descending colon just befor e the ostomy concerning for colitis. No evidence for bowel obstruction. [facility], , 05/01/2024 11:48 PM
[2024-05-02] MEDS: HYDROmorphone 0.5 MG/0.5 ML SYRINGE IVP STA (00:38)
[2024-05-02 00:57] VITALS: BP 150/96; PULSE 67; RESP 18; TEMP 97.7
== END 2024-05-02 01:05 | disposition home or self-care (01) ==
LOC: EC 18:20
DX: K50.90 Crohn's disease, unspecified, without complications (principal); F17.290 Nicotine dependence, other tobacco product, uncomplicated
CPT/HCPCS: 36415; 80053; 82150; 83605; 83690; 85025; 86140; 74177; 99284; 96374; 96375; 96361; 96376; J2405; J1171 ×2; Q9967; J2919

== ENCOUNTER 2024-05-22 13:23 | Emergency (ER) | payer OTHER ==
[2024-05-22 13:26] VITALS: TEMP 97.6
--- NOTE | 2024-05-22 13:41 | ED ---
Abdominal Pain HPI - General Chief Complaint: Abdominal Pain Stated Complaint: stom pain Time Seen by Provider: 05/22/24 13:29 Source: patient, RN notes reviewed Mode of arrival: ambulatory Limitations: no limitations - History of Present Illness Initial Comments: This is a 33-year-old male who presents to the emergency department for abdominal pain. Patient has a history of Crohn's disease and has had a bowel resection and currently has a colostomy bag. States that he has been here almost every month, at least once a month for his abdominal pain thought to be related to Crohn's. States when he gets put on steroids his pain temporarily improves and then when he goes off of it it seems to come back a week later. Pain started 2 to 3 days ago. He does note that his stoma is swollen, which has been like this for the last week. He is on a maintenance medication, but has not had any dose changes in a while and wonders if this may no longer be working for him. He does not have a local recruiting internship, the group he follows with [facility] out of [facility] Complaint: abdominal pain - Related Data Previous Rx's Medication Instructions Recorded Amoxic-Pot Clav 875-125Mg 1 tab PO BID 1 Days #14 tab 02/02/24 [Augmentin 875-125] levoFLOXacin 500 mg PO DAILY #10 tab 02/02/24 Levofloxacin [Levaquin] 750 mg PO DAILY 7 Days #7 tab 03/26/24 metroNIDAZOLE [Flagyl] 500 mg PO TID 7 Days #21 tab 03/26/24 predniSONE [Deltasone] 40 mg PO DAILY #8 tab 04/10/24 predniSONE [Deltasone] 40 mg PO DAILY #8 tab 05/02/24 predniSONE 10 mg PO DIRECTED 12 Days #30 05/22/24 tab Allergies Allergy/AdvReac Type Severity Reaction Status Date / Time No Known Allergies Allergy Verified 05/01/24 19:00 Review of Systems ROS Statement: Those systems with pertinent positive or pertinent negative responses have been documented in the HPI. ROS Other: All systems not noted in ROS Statement are negative. Past Medical History Additional Past Medical History / Comment(s): crohns disease History of Any Multi-Drug Resistant Organisms: None Reported, C-DIFF Date of last positivie culture/infection: 2020 MDRO Source:: stool Past Surgical History: Bowel Resection Additional Past Surgical History / Comment(s): colostomy, illeostomy and reversal Past Psychological History: No Psychological Hx Reported Smoking Status: Vaper Past Alcohol Use History: None Reported Past Drug Use History: None Reported General Exam Limitations: no limitations General appearance: alert, in no apparent distress Head exam: Present: atraumatic, normocephalic, normal inspection Respiratory exam: Present: normal lung sounds bilaterally. Absent: respiratory distress, wheezes, rales, rhonchi, stridor Cardiovascular Exam: Present: regular rate, normal rhythm, normal heart sounds. Absent: systolic murmur, diastolic murmur, rubs, gallop, clicks GI/Abdominal exam: Present: soft, tenderness (diffuse), other (Stoma is protruding and swollen). Absent: distended Neurological exam: Present: alert, oriented X3, CN II-XII intact Psychiatric exam: Present: normal affect, normal mood Skin exam: Present: warm, dry, intact, normal color. Absent: rash Course Vital Signs 05/22/24 05/22/24 05/22/24 13:24 13:50 16:36 Temperature 97.6 F Pulse Rate 93 94 82 Respiratory 20 18 18 Rate Blood Pressure 154/97 148/96 151/93 O2 Sat by Pulse 95 96 96 Oximetry Medical Decision Making - Medical Decision Making This is a 33-year-old male who presents to the emergency department for abdominal pain. Was pt. sent in by a medical professional or institution? @ -No Did you speak to anyone other than the patient for history? @ -No Did you review nursing and triage notes? @ -Yes, and I agree, it is accurate with regards to the patient's symptoms. Were old charts reviewed? @ -No Differential Diagnosis? @ -Differential Abdominal Pain Men: Appendicitis, cholecystitis, diverticulosis, ischemic bowel, pancreatitis, hepatitis, UTI, gastroenteritis, AAA, incarcerated hernia, bowel obstruction, constipation, inflammatory bowel, hepatitis, peptic ulcer disease, splenic infarction, perforated viscus, testicular torsion, this is not meant to be an all-inclusive list EKG interpreted by me (3pts min.)? @ -Not obtained X-rays interpreted by me (1pt min.)? @ -Not obtained CT interpreted by me (1pt min.)? @ -CT scan of the abdomen and pelvis obtained. My interpretation identifies a parastomal hernia in the left lower quadrant. U/S interpreted by me (1pt. min.)? @ -Not obtained What testing was considered but not performed? (CT, X-rays, U/S, labs)? Why? @ -None What meds were considered but not given? Why? @ -None Did you discuss the management of the patient with other professionals? @ -No Did you reconcile home meds? @ -No Was smoking cessation discussed for >3mins.? @ -No Was critical care preformed (if so, how long)? @ -No Were there social determinants of health that impacted care today? How? (Homelessness, low income, unemployed, alcoholism, drug addiction, transportation, low edu. Level, literacy, decrease access to med. care, half-way, rehab)? @ -No Was there de-escalation of care discussed even if they declined? (Discuss DNR or withdrawal of care, Hospice)? @ -No What co-morbidities impacted this encounter? (DM, HTN, Smoking, COPD, CAD, Cancer, CVA, Hep., AIDS, mental health diagnosis, sleep apnea, morbid obesity)? @ -Crohn's disease Was patient admitted / discharged? @ -Discharged. Lab work unremarkable. CT scan of the abdomen and pelvis demonstrates the left lower quadrant colostomy with parastomal hernia and mild inflammation changes within the omentum suggestive of some degree of stimulation. Findings reviewed with the patient. Symptoms well-controlled in the emergency department. Prescription for prednisone taper prescribed for Crohn's colitis flareup. Information for follow-up with local GI and general surgery provided as well, as he states that he wants to establish with groups locally as opposed to continuing to follow-up with [facility]. Advised that the parastomal hernia may need to be repaired, and he would need to follow-up with surgery for this. It is also possible that his maintenance medications are no longer working, causing his recurrent pain and flareups. Patient discharged home in stable condition. Case discussed with ED attending Dr. Villafana. Return precautions reviewed in depth, the patient is instructed to return to the emergency department with any new, worsening, or concerning symptoms. Patient verbalized understanding. Undiagnosed new problem with uncertain prognosis? @ -None Drug Therapy requiring intensive monitoring for toxicity (Heparin, Nitro, Insulin, Cardizem)? @ -None Were any procedures done? @ -None Diagnosis/symptom? @ -Abdominal pain, parastomal hernia Acute, or Chronic, or Acute on Chronic? @ -Acute Uncomplicated (without systemic symptoms) or Complicated (systemic symptoms)? @ -Uncomplicated Side effects of treatment? @ -None Exacerbation, Progression, or Severe Exacerbation] @ -Not applicable Poses a threat to life or bodily function? @ -No - Lab Data Result diagrams: 05/22/24 13:54 05/22/24 13:54 Lab Results 05/22/24 05/22/24 05/22/24 Range/Units 13:54 13:54 13:54 WBC 8.3 (3.8-10.6) k/uL RBC 4.58 (4.30-5.90) m/uL Hgb 13.4 (13.0-17.5) gm/dL Hct 38.7 L (39.0-53.0) % MCV 84.5 (80.0-100.0) fL MCH 29.2 (25.0-35.0) pg MCHC 34.6 (31.0-37.0) g/dL RDW 14.0 (11.5-15.5) % Plt Count 344 (150-450) k/uL MPV 6.9 Neutrophils % 76 % Lymphocytes % 13 % Monocytes % 7 % Eosinophils % 3 % Basophils % 1 % Neutrophils # 6.2 (1.3-7.7) k/uL Lymphocytes # 1.1 (1.0-4.8) k/uL Monocytes # 0.6 (0-1.0) k/uL Eosinophils # 0.2 (0-0.7) k/uL Basophils # 0.0 (0-0.2) k/uL Sodium 140 (137-145) mmol/L Potassium 3.4 L (3.5-5.1) mmol/L Chloride 104 (98-107) mmol/L Carbon Dioxide 27 (22-30) mmol/L Anion Gap 9 mmol/L BUN 10 (9-20) mg/dL Creatinine 0.77 (0.66-1.25) mg/dL Est GFR (CKD-EPI)AfAm >90 (>60 ml/min/1.73 sqM) Est GFR (CKD-EPI)NonAf >90 (>60 ml/min/1.73 sqM) Glucose 80 (74-99) mg/dL Plasma Lactic Acid Patrice 1.2 (0.7-2.0) mmol/L Calcium 9.2 (8.4-10.2) mg/dL Total Bilirubin 0.4 (0.2-1.3) mg/dL AST 27 (17-59) U/L ALT 34 (4-49) U/L Alkaline Phosphatase 76 (38-126) U/L C-Reactive Protein 0.8 (<1.0) mg/dL Total Protein 6.5 (6.3-8.2) g/dL Albumin 3.7 (3.5-5.0) g/dL Amylase 48 (30-110) U/L Lipase 167 (23-300) U/L - Radiology Data Radiology results: report reviewed, image reviewed Disposition Clinical Impression: Abdominal pain, Parastomal hernia, Crohn's colitis Disposition: HOME SELF-CARE Instructions (If sedation given, give patient instructions): Crohn Disease (ED) Additional Instructions: Return to the emergency department with any new, worsening, or concerning symptoms. Take the prednisone as prescribed for [address] Blas is the local recruiting internship you can become established with for further management of the Crohn's. Dr. Benton and Dr. Taylor are local general surgeons who you should also follow-up with to discuss repair of the parastomal hernia. Prescriptions: predniSONE 10 mg PO DIRECTED 12 Days #30 tab Is patient prescribed a controlled substance at d/c from ED?: No Referrals: None,Stated [Primary Care Provider] - 1-2 days Natalia Blas MD [STAFF PHYSICIAN] - 1-2 days Jorge Alberto Benton MD [STAFF PHYSICIAN] - 1-2 days Miki Sheffield DO [Medical Doctor] - 1-2 days Time of Disposition: 16:06
[2024-05-22] MEDS: SODIUM CHLORIDE 0.9% 1,000 ML IV STA (14:14)
[2024-05-22] MEDS: HYDROmorphone 1 MG/ML 1 ML SYRINGE IVP STA ×2 (14:15→15:34)
[2024-05-22] MEDS: KETOROLAC 15 MG/ML 1 ML VIAL IVP STA (14:21)
[2024-05-22] MEDS: ONDANSETRON 4 MG/2 ML VIAL IVP STA (14:25)
[2024-05-22] MEDS: methylPREDNISolone SOD SUCCI 125 MG/2 ML VIAL IV STA (14:27)
[2024-05-22] MEDS: FAMOTIDINE 20 MG/2 ML VIAL IV STA (14:30)
[2024-05-22 14:32] LABS: Basophils % (A) 1 %; Eosinophils # (A) 0.2 k/uL (0-0.7); Eosinophils % (A) 3 %; HCT 38.7 % (39.0-53.0); HGB 13.4 gm/dL (13.0-17.5); Lymphocytes # (A) 1.1 k/uL (1.0-4.8); Lymphocytes % (A) 13 %; MCH 29.2 pg (25.0-35.0); MCHC 34.6 g/dL (31.0-37.0); MCV 84.5 fL (80.0-100.0); Mean Platelet Volume 6.9; Monocytes # (A) 0.6 k/uL (0-1.0); Monocytes % (A) 7 %; Neutrophils # (A) 6.2 k/uL (1.3-7.7); Neutrophils % (A) 76 %; Platelet Count 344 k/uL (150-450); RBC 4.58 m/uL (4.30-5.90); WBC 8.3 k/uL (3.8-10.6)
[2024-05-22 14:54] LABS: ALT 34 U/L (4-49); AST 27 U/L (17-59); African American GFR (CKD) >90 (>60 ml/min/1.73 sqM); Albumin 3.7 g/dL (3.5-5.0); Alkaline Phosphatase 76 U/L (38-126); Amylase 48 U/L (30-110); Anion Gap 9 mmol/L; Blood Urea Nitrogen 10 mg/dL (9-20); Calcium 9.2 mg/dL (8.4-10.2); Carbon Dioxide 27 mmol/L (22-30); Chloride 104 mmol/L (98-107); Glucose 80 mg/dL (74-99); Lipase 167 U/L (23-300); Non-African American GFR(CKD) >90 (>60 ml/min/1.73 sqM); Potassium 3.4 mmol/L (3.5-5.1); Sodium 140 mmol/L (137-145); Total Bilirubin 0.4 mg/dL (0.2-1.3); Total Protein 6.5 g/dL (6.3-8.2)
[2024-05-22 15:00] VITALS: RESP 18
--- NOTE | 2024-05-22 15:28 | CT ---
EXAMINATION TYPE: CT abdomen pelvis w con DATE OF EXAM: 05/22/2024 3:04 PM COMPARISON: 04/21/2024 CLINICAL INDICATION: Male, 33 years old with history of Upper abdominal pain, stoma swelling; Upper a bdominal pain, stoma swelling, crohns disease. TECHNIQUE: Axial CT abdomen pelvis w con;Sagittal and coronal reformats were created on a separate w orkstation. Contrast used:100 ml mL of Isovue 300 with IV Contrast, (none if empty) Oral contrast used: without Oral Contrast (none if empty) CT DLP: 796 mGycm, Automated exposure control for dose reduction was used. FINDINGS: LOWER CHEST: Unremarkable ABDOMEN LIVER: Unremarkable GALLBLADDER AND BILE DUCTS: Unremarkable. PANCREAS: Unremarkable. SPLEEN: Unremarkable. ADRENAL GLANDS: Unremarkable. KIDNEYS AND URETERS: No evidence of hydronephrosis or renal calculus. The kidneys enhance symmetrical ly. Contrast is demonstrated within both collecting systems on the delayed phase. PELVIS BLADDER: Unremarkable REPRODUCTIVE: Unremarkable. ABDOMEN & PELVIS STOMACH AND BOWEL: Stomach and duodenum are unremarkable. Left lower quadrant diverting colostomy. Po stsurgical changes involving the terminal ileum. There is some minimal wall thickening with some fat stranding involving the parastomal omentum. The appendix appears surgically absent with surgical clip s present. PERITONEUM: No evidence of pneumoperitoneum or free fluid. VASCULATURE: No evidence of aortic aneurysm. MUSCULOSKELETAL: No acute osseous abnormalities. Similar nonspecific patchy sclerotic appearance to t he proximal left femur. LYMPH NODES: No evidence for lymphadenopathy. SOFT TISSUE/ABDOMINAL WALL: Diastases of the rectus abdominis muscle versus and small bowel wide mout h umbilical hernia. IMPRESSION: Left lower quadrant colostomy with parastomal hernia . Mild inflammation changes within the omentum s uggests some degree of stimulation. Consider reduction of omental parastomal hernia. [facility], , 05/22/2024 3:25 PM
[2024-05-22 16:04] LABS: C Reactive Protein 0.8 mg/dL (<1.0)
[2024-05-22 16:37] VITALS: BP 151/93; PULSE 82
[2024-05-22] MEDS: traMADol 50 MG STARTER PACK 3 TAB BTL PO STA (16:37)
[2024-05-22] MEDS: ONDANSETRON 4 MG ODT STARTER PACK 2 TAB BTL PO STA (16:38)
[2024-05-23 00:09] LABS: Erythrocyte Sedimentation Rate 14 mm/Hr (0-15)
== END 2024-05-22 16:39 | disposition home or self-care (01) ==
LOC: EC 13:23
DX: K43.5 Parastomal hernia without obstruction or gangrene (principal); K50.10 Crohn's disease of large intestine without complications; F17.290 Nicotine dependence, other tobacco product, uncomplicated
CPT/HCPCS: 36415; 80053; 85652; 82150; 83605; 83690; 85025; 86140; 74177; 99284; 96374; 96375 ×4; 96376; 96361 ×2; J2405; J3490; J1171; J1885; S0119; Q9967; J2919

== ENCOUNTER 2024-05-27 07:05 | Emergency (ER) | payer OTHER ==
[2024-05-27 07:16] VITALS: RESP 18
--- NOTE | 2024-05-27 07:37 | ED ---
General Adult HPI - General Chief complaint: Abdominal Pain Stated complaint: ABD Pain Time Seen by Provider: 05/27/24 07:18 Source: patient Mode of arrival: ambulatory Limitations: no limitations - History of Present Illness Initial comments: Dictation was produced using [employer] dictation software. please excuse any grammatical, word or spelling errors. Chief Complaint: 33-year-old male with abdominal pain History of Present Illness: Patient 33-year-old male with history of Crohn's presents to the emergency department for 1 to 2 days of abdominal pain. Patient is well-known to the emergency department for frequent visitations for chronic abdominal pain. Station states that he missed work because of his abdominal pain. States that he feels like his stomach is herniating. Denies any fever, chills or night sweats states that his whole belly is hurting. Denies any any vomiting but reports nausea The ROS documented in this emergency department record has been reviewed and confirmed by me. Those systems with pertinent positive or negative responses have been documented in the HPI. All other systems are other negative and/or noncontributory. - Related Data Previous Rx's Medication Instructions Recorded Amoxic-Pot Clav 875-125Mg 1 tab PO BID 1 Days #14 tab 02/02/24 [Augmentin 875-125] levoFLOXacin 500 mg PO DAILY #10 tab 02/02/24 Levofloxacin [Levaquin] 750 mg PO DAILY 7 Days #7 tab 03/26/24 metroNIDAZOLE [Flagyl] 500 mg PO TID 7 Days #21 tab 03/26/24 predniSONE [Deltasone] 40 mg PO DAILY #8 tab 04/10/24 predniSONE [Deltasone] 40 mg PO DAILY #8 tab 05/02/24 predniSONE 10 mg PO DIRECTED 12 Days #30 05/22/24 tab Allergies Allergy/AdvReac Type Severity Reaction Status Date / Time No Known Allergies Allergy Verified 05/27/24 07:12 Review of Systems ROS Statement: Those systems with pertinent positive or pertinent negative responses have been documented in the HPI. ROS Other: All systems not noted in ROS Statement are negative. Past Medical History Additional Past Medical History / Comment(s): crohns disease History of Any Multi-Drug Resistant Organisms: C-DIFF Date of last positivie culture/infection: 2020 MDRO Source:: stool Past Surgical History: Bowel Resection Additional Past Surgical History / Comment(s): colostomy, illeostomy and reversal Past Psychological History: No Psychological Hx Reported Smoking Status: Vaper Past Alcohol Use History: None Reported Past Drug Use History: None Reported General Exam - General Exam Comments Initial Comments: PHYSICAL EXAM: General Impression: Alert and oriented x3, not in acute distress HEENT: Normocephalic atraumatic, extra-ocular movements intact, pupils equal and reactive to light bilaterally, mucous membranes moist. Cardiovascular: Heart regular rate and rhythm Chest: Able to complete full sentences, no retractions, no tachypnea Abdomen: abdomen soft, diffuse palpatory tenderness, non-distended, no organomegaly, reducible stoma Musculoskeletal: Pulses present and equal in all extremities, no peripheral edema Motor: no focal deficits noted Neurological: CN II-XII grossly intact, no focal motor or sensory deficits noted Skin: Intact with no visualized rashes Psych: Normal affect and mood Limitations: no limitations Course Vital Signs 05/27/24 05/27/24 07:12 07:42 Temperature 97.4 F L Pulse Rate 78 62 Respiratory 18 18 Rate Blood Pressure 130/89 141/95 O2 Sat by Pulse 99 99 Oximetry Medical Decision Making - Medical Decision Making Was pt. sent in by a medical professional or institution (, PA, MANAGEMENT [employer]ET[employer], urgent care, hospital, or fdc...) When possible be specific @ -No Did you speak to anyone other than the patient for history (EMS, parent, family, police, friend...)? What history was obtained from this source @ -No Did you review nursing and triage notes (agree or disagree)? Why? @ -I reviewed and agree with nursing and triage notes Were old charts reviewed (outside hosp., previous admission, EMS record, old EKG, old radiological studies, urgent care reports/EKG's, fdc records)? Report findings @ -No old charts were reviewed Differential Diagnosis (chest pain, altered mental status, abdominal pain women, abdominal pain men, vaginal bleeding, musculoskeletal, weakness, fever, dyspnea, syncope, headache, dizziness, GI bleed, back pain, seizure, CVA, palpatations, mental health)? @ -Differential Abdominal Pain Men: Appendicitis, cholecystitis, diverticulosis, ischemic bowel, pancreatitis, hepatitis, UTI, gastroenteritis, AAA, incarcerated hernia, bowel obstruction, constipation, inflammatory bowel, hepatitis, peptic ulcer disease, splenic infarction, perforated viscus, testicular torsion, this is not meant to be an all-inclusive list EKG interpreted by me (3pts min.). @ -None done X-rays interpreted by me (1pt min.). @ -Abdominal x-ray is nonacute CT interpreted by me (1pt min.). @ -None done U/S interpreted by me (1pt. min.). @ -None done What testing was considered but not performed or refused? (CT, X-rays, U/S, la bs)? Why? @ -None What meds were considered but not given or refused? Why? @ -None Was smoking cessation discussed for >3mins.? @ -No Were there social determinants of health that impacted care today? How? (Homelessness, low income, unemployed, alcoholism, drug addiction, transportation, low edu. Level, literacy, decrease access to med. care, correction, rehab)? @ -No Was there de-escalation of care discussed even if they declined (Discuss DNR or withdrawal of care, Hospice)? DNR status @ -No What co-morbidities impacted this encounter? (DM, HTN, Smoking, COPD, CAD, Cancer, CVA, ARF, Chemo, Hep., AIDS, mental health diagnosis, sleep apnea, morbid obesity)? @ -Crohn's disease Was patient admitted / discharged? Hospital course, mention meds given and route, prescriptions, significant lab abnormalities, going to OR and other pertinent info. @ -33-year-old male presents emergency department with acute on chronic abdominal pain his history of Crohn's. Vital signs stable. Physical examina tion is benign. Patient requesting work note. Work note provided. Labs unremarkable. Abdominal x-ray negative. Patient reevaluated bedside 8:20 AM Cielo within stable medical condition. Patient agreed with discharge advised follow-up with his current specialist Did you discuss the management of the patient with other professionals (professionals i.e. , PA, [employer]NA[employer], lab, RT, psych nurse, social work supervisor, inside solar sales consultant, teacher, chief environmental commitment officer, upper caser)? Give summary @ -No Was critical care preformed (if so, how long)? @ -No Undiagnosed new problem with uncertain prognosis? @ -No Drug Therapy requiring intensive monitoring for toxicity (Heparin, Nitro, Insulin, Cardizem)? @ -No Were any procedures done? @ -No Diagnosis/symptom? Acute, or Chronic, or Acute on Chronic? Uncomplicated ( without systemic symptoms) or Complicated (systemic symptoms)? @ -Crohn's flare Side effects of treatment? @ -No Exacerbation, Progression, or Severe Exacerbation? @ -No Poses a threat to life or bodily function? How? (Chest pain, USA, MS, pneumonia, PE, COPD, DKA, ARF, appy, cholecystitis, CVA, Diverticulitis, Homicidal, Suicidal, threat to staff... and all critical care pts) @ -No - Lab Data Result diagrams: 05/27/24 07:31 05/27/24 07:31 Lab Results 05/27/24 05/27/24 Range/Units 07:31 07:31 WBC 8.8 (3.8-10.6) k/uL RBC 5.02 (4.30-5.90) m/uL Hgb 14.5 (13.0-17.5) gm/dL Hct 42.6 (39.0-53.0) % MCV 84.9 (80.0-100.0) fL MCH 28.9 (25.0-35.0) pg MCHC 34.0 (31.0-37.0) g/dL RDW 14.0 (11.5-15.5) % Plt Count 336 (150-450) k/uL MPV 6.6 Neutrophils % 75 % Lymphocytes % 13 % Monocytes % 7 % Eosinophils % 3 % Basophils % 1 % Neutrophils # 6.6 (1.3-7.7) k/uL Lymphocytes # 1.1 (1.0-4.8) k/uL Monocytes # 0.6 (0-1.0) k/uL Eosinophils # 0.3 (0-0.7) k/uL Basophils # 0.1 (0-0.2) k/uL Sodium 137 (137-145) mmol/L Potassium 4.0 (3.5-5.1) mmol/L Chloride 101 (98-107) mmol/L Carbon Dioxide 29 (22-30) mmol/L Anion Gap 7 mmol/L BUN 11 (9-20) mg/dL Creatinine 0.74 (0.66-1.25) mg/dL Est GFR (CKD-EPI)AfAm >90 (>60 ml/min/1.73 sqM) Est GFR (CKD-EPI)NonAf >90 (>60 ml/min/1.73 sqM) Glucose 78 (74-99) mg/dL Calcium 9.5 (8.4-10.2) mg/dL Total Bilirubin 0.5 (0.2-1.3) mg/dL AST 27 (17-59) U/L ALT 27 (4-49) U/L Alkaline Phosphatase 81 (38-126) U/L Total Protein 7.0 (6.3-8.2) g/dL Albumin 4.1 (3.5-5.0) g/dL Disposition Clinical Impression: Abdominal pain Disposition: HOME SELF-CARE Instructions (If sedation given, give patient instructions): Abdominal Pain (ED) Is patient prescribed a controlled substance at d/c from ED?: No Referrals: None,Stated [Primary Care Provider] - 1-2 days Time of Disposition: 08:22
[2024-05-27 07:42] LABS: Basophils # (A) 0.1 k/uL (0-0.2); Basophils % (A) 1 %; Eosinophils # (A) 0.3 k/uL (0-0.7); Eosinophils % (A) 3 %; HCT 42.6 % (39.0-53.0); HGB 14.5 gm/dL (13.0-17.5); Lymphocytes # (A) 1.1 k/uL (1.0-4.8); Lymphocytes % (A) 13 %; MCH 28.9 pg (25.0-35.0); MCV 84.9 fL (80.0-100.0); Mean Platelet Volume 6.6; Monocytes # (A) 0.6 k/uL (0-1.0); Monocytes % (A) 7 %; Neutrophils # (A) 6.6 k/uL (1.3-7.7); Neutrophils % (A) 75 %; Platelet Count 336 k/uL (150-450); RBC 5.02 m/uL (4.30-5.90); WBC 8.8 k/uL (3.8-10.6)
[2024-05-27] MEDS: HYDROmorphone 1 MG/ML 1 ML SYRINGE IVP STA (07:43)
[2024-05-27 08:03] LABS: ALT 27 U/L (4-49); AST 27 U/L (17-59); African American GFR (CKD) >90 (>60 ml/min/1.73 sqM); Albumin 4.1 g/dL (3.5-5.0); Alkaline Phosphatase 81 U/L (38-126); Anion Gap 7 mmol/L; Blood Urea Nitrogen 11 mg/dL (9-20); Calcium 9.5 mg/dL (8.4-10.2); Carbon Dioxide 29 mmol/L (22-30); Chloride 101 mmol/L (98-107); Glucose 78 mg/dL (74-99); Non-African American GFR(CKD) >90 (>60 ml/min/1.73 sqM); Sodium 137 mmol/L (137-145); Total Bilirubin 0.5 mg/dL (0.2-1.3)
--- NOTE | 2024-05-27 08:19 | XR ---
EXAMINATION TYPE: XR abdomen 1V DATE OF EXAM: 05/27/2024 8:09 AM COMPARISON: CTs dating back to 02/02/2024 CLINICAL INDICATION: Male, 33 years old with history of crohns flare; TECHNIQUE: One radiographic view of the abdomen was obtained. FINDINGS: The bowel gas pattern is nonspecific without dilated loops of small or large bowel. . Fecal material and gas are demonstrated throughout the colon and rectum. There is no evidence for organome lai or pneumoperitoneum. No acute osseous process. No abnormal calcifications are present. Similar sclerotic area in the left proximal femur possibly representing bone infarct versus enchondroma vers us other. IMPRESSION: Nonspecific bowel gas pattern without radiographic evidence for acute process. [facility], , 05/27/2024 8:17 AM
[2024-05-27 09:21] VITALS: BP 150/99; PULSE 67; TEMP 97.1
== END 2024-05-27 09:15 | disposition home or self-care (01) ==
LOC: EC 07:05
DX: K50.90 Crohn's disease, unspecified, without complications (principal); F17.290 Nicotine dependence, other tobacco product, uncomplicated
CPT/HCPCS: 36415; 80053; 85025; 74018; 99284; 96374; J1171

== ENCOUNTER 2024-09-02 15:22 | Emergency (ER) | payer OTHER ==
[2024-09-02 15:26] VITALS: RESP 18; TEMP 97.3
[2024-09-02] MEDS: KETOROLAC 15 MG/ML 1 ML VIAL IVP STA (16:35)
[2024-09-02 16:42] LABS: Basophils # (A) 0.06 10*3/uL (0.00-0.10); Basophils % (A) 0.5 %; Eosinophils # (A) 0.05 10*3/uL (0.04-0.35); Eosinophils % (A) 0.4 %; HCT 37.6 % (39.6-50.0); HGB 13.3 g/dL (13.0-17.0); Lymphocytes # (A) 0.75 10*3/uL (0.90-5.00); Lymphocytes % (A) 5.8 %; MCH 29.4 pg (27.0-32.0); MCHC 35.4 g/dL (32.0-37.0); Mean Platelet Volume 9.3 fL (9.5-12.2); Monocytes # (A) 0.96 10*3/uL (0.20-1.00); Monocytes % (A) 7.5 %; Neutrophils # (A) 10.96 10*3/uL (1.80-7.70); Neutrophils % (A) 85.4 %; Platelet Count 382 10*3/uL (140-440); RBC 4.53 10*6/uL (4.40-5.60); RDW 12.8 % (11.5-14.5); WBC 12.83 10*3/uL (4.50-10.00)
--- NOTE | 2024-09-02 16:44 | XR ---
EXAMINATION TYPE: XR KUB DATE OF EXAM: 09/02/2024 4:40 PM COMPARISON: None. CLINICAL INDICATION: Male, 34 years old with history of abdominal pain, TECHNIQUE: Single view of the abdomen. FINDINGS: Small bowel demonstrates no evidence for dilatation or air fluid levels. Gas and fecal material is seen in non-distended colon. Left-sided ostomy noted. No convincing evidence for pneumoperitoneum. No unusual calcifications. The lung bases are clear. The osseous structures are intact. Area of sclerosis left greater trochanteric region. IMPRESSION: 1. Overall nonobstructive bowel gas pattern. [facility], , 09/02/2024 4:42 PM
[2024-09-02 16:52] LABS: ALT 21 U/L (4-49); African American GFR (CKD) >90 (>60 ml/min/1.73 sqM); Amylase 51 U/L (30-110); Anion Gap 11 mmol/L; Blood Urea Nitrogen 15 mg/dL (9-20); Calcium 9.1 mg/dL (8.4-10.2); Carbon Dioxide 22 mmol/L (22-30); Chloride 102 mmol/L (98-107); Glucose 87 mg/dL (74-99); Lipase 219 U/L (23-300); Non-African American GFR(CKD) >90 (>60 ml/min/1.73 sqM); Sodium 135 mmol/L (137-145)
[2024-09-02 16:53] LABS: Potassium 5.3 mmol/L (3.5-5.1)
[2024-09-02 16:54] LABS: AST 43 U/L (17-59); Albumin 4.6 g/dL (3.5-5.0); Alkaline Phosphatase 60 U/L (38-126); Total Protein 8.3 g/dL (6.3-8.2)
--- NOTE | 2024-09-02 17:06 | ED ---
General Adult HPI - General Chief complaint: Abdominal Pain Stated complaint: Stomach Pain/ND Time Seen by Provider: 09/02/24 15:35 Source: patient, RN notes reviewed, old records reviewed Mode of arrival: ambulatory Limitations: no limitations - History of Present Illness Initial comments: This is a 34-year-old male who presents to the emergency department the past medical history significant for Crohn's disease. Patient comes in states his abdomen has been hurting in the epigastric region for about a week. Patient states he also has noticed his stoma has been swollen for months now but he has not followed up with anyone. Patient states he has not had a GI doctor in years. 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 Patient denies any nausea or vomiting to me. Patient states the stool has been much more liquidy in the last couple of days. Is tolerating foods. - Related Data Previous Rx's Medication Instructions Recorded Amoxic-Pot Clav 875-125Mg 1 tab PO BID 1 Days #14 tab 02/02/24 [Augmentin 875-125] levoFLOXacin 500 mg PO DAILY #10 tab 02/02/24 Levofloxacin [Levaquin] 750 mg PO DAILY 7 Days #7 tab 03/26/24 metroNIDAZOLE [Flagyl] 500 mg PO TID 7 Days #21 tab 03/26/24 predniSONE [Deltasone] 40 mg PO DAILY #8 tab 04/10/24 predniSONE [Deltasone] 40 mg PO DAILY #8 tab 05/02/24 predniSONE 10 mg PO DIRECTED 12 Days #30 05/22/24 tab predniSONE [Deltasone] 40 mg PO DAILY #8 tab 09/02/24 Allergies Allergy/AdvReac Type Severity Reaction Status Date / Time No Known Allergies Allergy Verified 09/02/24 15:26 Review of Systems ROS Statement: Those systems with pertinent positive or pertinent negative responses have been documented in the HPI. ROS Other: All systems not noted in ROS Statement are negative. Past Medical History Additional Past Medical History / Comment(s): crohns disease History of Any Multi-Drug Resistant Organisms: C-DIFF Date of last positivie culture/infection: 2020 MDRO Source:: stool Past Surgical History: Bowel Resection Additional Past Surgical History / Comment(s): colostomy, illeostomy and reversal Past Psychological History: No Psychological Hx Reported Smoking Status: Vaper Past Alcohol Use History: None Reported Past Drug Use History: None Reported General Exam - General Exam Comments Initial Comments: GENERAL: Patient is well-developed and well-nourished. Patient is nontoxic and well- hydrated and is in no acute distress. ENT: Neck is soft and supple. No significant lymphadenopathy is noted. Oropharynx is clear. Moist mucous membranes. Neck has full range of motion without eliciting any pain. EYES: The sclera were anicteric and conjunctiva were pink and moist. Extraocular movements were intact and pupils were equal round and reactive to light. Ey elids were unremarkable. PULMONARY: Unlabored respirations. Good breath sounds bilaterally. No audible rales rhonchi or wheezing was noted. CARDIOVASCULAR: There is a regular rate and rhythm without any murmurs gallops or rubs. ABDOMEN: Soft and nontender with normal bowel sounds. To elicit any pain on palpation. Patient's stoma is large but he states that this has been ongoing for many [facility] SKIN: Skin is clear with no lesions or rashes and otherwise unremarkable. NEUROLOGIC: Patient is alert and oriented x3. Cranial nerves II through XII are grossly intact. Motor and sensory are also intact. Normal speech, volume and content. Symmetrical smile. MUSCULOSKELETAL: Normal extremities with adequate strength and full range of motion. LYMPHATICS: No significant lymphadenopathy is noted PSYCHIATRIC: Normal psychiatric evaluation. Limitations: no limitations Course Vital Signs 09/02/24 15:23 Temperature 97.3 F L Pulse Rate 100 Respiratory 18 Rate Blood Pressure 128/89 O2 Sat by Pulse 100 Oximetry Medical Decision Making - Medical Decision Making Was pt. sent in by a medical professional or institution (, PA, TIMBER DEADENER, urgent care, hospital, or usp...) When possible be specific @ -No Did you speak to anyone other than the patient for history (EMS, parent, family, police, friend...)? What history was obtained from this source @ -No Did you review nursing and triage notes (agree or disagree)? Why? @ -I reviewed and agree with nursing and triage notes Were old charts reviewed (outside hosp., previous admission, EMS record, old EKG, old radiological studies, urgent care reports/EKG's, usp records)? Report findings @ -No old charts were reviewed Differential Diagnosis? @ -Differential abdominal pain EKG interpreted by me (3pts min.). @ -As above X-rays interpreted by me (1pt min.). @ -None done CT interpreted by me (1pt min.). @ -None done U/S interpreted by me (1pt. min.). @ -None done What testing was considered but not performed or refused? (CT, X-rays, U/S, labs)? Why? @ -None What meds were considered but not given or refused? Why? @ -None Did you discuss the management of the patient with other professionals (professionals i.e. DrDaina, PA, TIMBER DEADENER, lab, RT, psych nurse, social media project manager, intermodal customer service, teacher, control officer, employment evaluator/case manager)? Give summary @ -No Was smoking cessation discussed for >3mins.? @ -No Was critical care preformed (if so, how long)? @ -No Were there social determinants of health that impacted care today? How? (Homelessness, low income, unemployed, alcoholism, drug addiction, transportation, low edu. Level, literacy, decrease access to med. care, [facility], rehab)? @ -No Was there de-escalation of care discussed even if they declined (Discuss DNR or withdrawal of care, Hospice)? DNR status @ -No What co-morbidities impacted this encounter? (DM, HTN, Smoking, COPD, CAD, Cancer, CVA, ARF, Chemo, Hep., AIDS, mental health diagnosis, sleep apnea, morbid obesity)? @ -None Was patient admitted / discharged? Hospital course, mention meds given and route, prescriptions, significant lab abnormalities, going to OR and other pertinent info. @ -Patient's abdominal examination was benign when I initially saw him and on follow-up. Patient was given Toradol and 0.5 toddy was feeling better. Patient was also given steroids for possible exacerbation of Crohn's. Patient was given Dr. Carrillo's number on discharge Undiagnosed new problem with uncertain prognosis? @ -No Drug Therapy requiring intensive monitoring for toxicity (Heparin, Nitro, Insulin, Cardizem)? @ -No Were any procedures done? @ -No Diagnosis/symptom? @ -Crohn's exacerbation Acute, or Chronic, or Acute on Chronic? @ -Acute Uncomplicated (without systemic symptoms) or Complicated (systemic symptoms)? @ -Complicated Side effects of treatment? @ -No Exacerbation, Progression, or Severe Exacerbation? @ -No Poses a threat to life or bodily function? How? (Chest pain, USA, [place], pneumonia, PE, COPD, DKA, ARF, appy, cholecystitis, CVA, Diverticulitis, Homicidal, Suicidal, threat to staff... and all critical care pts) @ -No - Lab Data Result diagrams: 09/02/24 16:32 09/02/24 16:32 Lab Results 09/02/24 09/02/24 Range/Units 16:32 16:32 WBC 12.83 H (4.50-10.00) 10*3/uL RBC 4.53 (4.40-5.60) 10*6/uL Hgb 13.3 (13.0-17.0) g/dL Hct 37.6 L (39.6-50.0) % MCV 83.0 (80.0-97.0) fL MCH 29.4 (27.0-32.0) pg MCHC 35.4 (32.0-37.0) g/dL Plt Count 382 (140-440) 10*3/uL MPV 9.3 L (9.5-12.2) fL Immature Gran % (Auto) 0.4 % Neutrophils % 85.4 % Lymphocytes % 5.8 % Monocytes % 7.5 % Eosinophils % 0.4 % Basophils % 0.5 % Immature Gran # 0.05 H (0.00-0.04) 10*3/uL Neutrophils # 10.96 H (1.80-7.70) 10*3/uL Lymphocytes # 0.75 L (0.90-5.00) 10*3/uL Monocytes # 0.96 (0.20-1.00) 10*3/uL Eosinophils # 0.05 (0.04-0.35) 10*3/uL Basophils # 0.06 (0.00-0.10) 10*3/uL Sodium 135 L (137-145) mmol/L Potassium 5.3 H (3.5-5.1) mmol/L Chloride 102 (98-107) mmol/L Carbon Dioxide 22 (22-30) mmol/L Anion Gap 11 mmol/L BUN 15 (9-20) mg/dL Creatinine 0.63 L (0.66-1.25) mg/dL Est GFR (CKD-EPI)AfAm >90 (>60 ml/min/1.73 sqM) Est GFR (CKD-EPI)NonAf >90 (>60 ml/min/1.73 sqM) Glucose 87 (74-99) mg/dL Calcium 9.1 (8.4-10.2) mg/dL Total Bilirubin 1.0 (0.2-1.3) mg/dL AST 43 (17-59) U/L ALT 21 (4-49) U/L Alkaline Phosphatase 60 (38-126) U/L Total Protein 8.3 H (6.3-8.2) g/dL Albumin 4.6 (3.5-5.0) g/dL Amylase 51 (30-110) U/L Lipase 219 (23-300) U/L Disposition Clinical Impression: Exacerbation of Crohn's disease Disposition: HOME SELF-CARE Condition: Good Instructions (If sedation given, give patient instructions): Crohn Disease (ED) Additional Instructions: Patient should follow-up with Dr. Blas Prescriptions: predniSONE [Deltasone] 40 mg PO DAILY #8 tab Is patient prescribed a controlled substance at d/c from ED?: No Referrals: None,Stated [Primary Care Provider] - 1-2 days Natalia Blas MD [STAFF PHYSICIAN] - 1-2 days Time of Disposition: 17:17
[2024-09-02] MEDS: HYDROmorphone 0.5 MG/0.5 ML SYRINGE IVP STA (17:19)
[2024-09-02] MEDS: methylPREDNISolone SOD SUCCI 125 MG/2 ML VIAL IV STA (17:21)
[2024-09-02 17:44] VITALS: BP 122/75; PULSE 85
== END 2024-09-02 17:42 | disposition home or self-care (01) ==
LOC: EC 15:22
DX: K50.90 Crohn's disease, unspecified, without complications (principal); F17.290 Nicotine dependence, other tobacco product, uncomplicated
CPT/HCPCS: 36415; 80053; 82150; 83690; 85025; 74018; 99284; 96374; 96375 ×2; J1885; J1171; J2919

== ENCOUNTER 2024-09-14 05:45 | Emergency (ER) | payer OTHER ==
[2024-09-14 05:50] VITALS: RESP 18; TEMP 97.4
--- NOTE | 2024-09-14 06:31 | ED ---
Abdominal Pain HPI - General Chief Complaint: Abdominal Pain Stated Complaint: abd pain Time Seen by Provider: 09/14/24 05:56 Source: patient, RN notes reviewed Mode of arrival: ambulatory Limitations: no limitations - History of Present Illness Initial Comments: 34-year-old male presents emergency department complaint of abdominal pain. Patient states he has a history of Crohn's disease he states he has not had his medication in over a week due to insurance reasons. Patient did recent follow- up with his GI because of worsening issues they were to adjust his medications has not seen any adjustments yet. Patient states he is having nausea vomiting diarrhea abdominal cramping he does have prior surgery and colostomy. He follows GI out of [facility] denies fevers or chills no chest pain or shortness of breath. - Related Data Previous Rx's Medication Instructions Recorded Amoxic-Pot Clav 875-125Mg 1 tab PO BID 1 Days #14 tab 02/02/24 [Augmentin 875-125] levoFLOXacin 500 mg PO DAILY #10 tab 02/02/24 Levofloxacin [Levaquin] 750 mg PO DAILY 7 Days #7 tab 03/26/24 metroNIDAZOLE [Flagyl] 500 mg PO TID 7 Days #21 tab 03/26/24 predniSONE [Deltasone] 40 mg PO DAILY #8 tab 04/10/24 predniSONE [Deltasone] 40 mg PO DAILY #8 tab 05/02/24 predniSONE 10 mg PO DIRECTED 12 Days #30 05/22/24 tab predniSONE [Deltasone] 40 mg PO DAILY #8 tab 09/02/24 predniSONE 50 mg PO DAILY #5 tab 09/14/24 Allergies Allergy/AdvReac Type Severity Reaction Status Date / Time No Known Allergies Allergy Verified 09/14/24 05:47 Review of Systems ROS Statement: Those systems with pertinent positive or pertinent negative responses have been documented in the HPI. ROS Other: All systems not noted in ROS Statement are negative. Past Medical History Additional Past Medical History / Comment(s): crohns disease History of Any Multi-Drug Resistant Organisms: C-DIFF Date of last positivie culture/infection: 2020 MDRO Source:: stool Past Surgical History: Bowel Resection Additional Past Surgical History / Comment(s): colostomy, illeostomy and reversal Past Psychological History: No Psychological Hx Reported Smoking Status: Vaper Past Alcohol Use History: None Reported Past Drug Use History: None Reported General Exam Limitations: no limitations General appearance: alert, in no apparent distress Head exam: Present: atraumatic, normocephalic, normal inspection Eye exam: Present: normal appearance, PERRL, EOMI. Absent: scleral icterus, conjunctival injection, periorbital swelling ENT exam: Present: normal exam, normal oropharynx, mucous membranes moist Neck exam: Present: normal inspection, full ROM. Absent: tenderness, meningismus, lymphadenopathy Respiratory exam: Present: normal lung sounds bilaterally. Absent: respiratory distress, wheezes, rales, rhonchi, stridor Cardiovascular Exam: Present: regular rate, normal rhythm, normal heart sounds. Absent: systolic murmur, diastolic murmur, rubs, gallop, clicks GI/Abdominal exam: Present: soft, tenderness, normal bowel sounds. Absent: distended, guarding, rebound, rigid Back exam: Absent: CVA tenderness (R), CVA tenderness (L) Neurological exam: Present: alert, oriented X3 Skin exam: Present: warm, dry, intact, normal color. Absent: rash Course Vital Signs 09/14/24 05:47 Temperature 97.4 F L Pulse Rate 82 Respiratory 18 Rate Blood Pressure 118/76 O2 Sat by Pulse 98 Oximetry Medical Decision Making - Medical Decision Making Was pt. sent in by a medical professional or institution (, PA, PERFORMANCE INSTRUCTOR, urgent care, hospital, or [place] health [facility] facility...) When possible be specific @ -No Did you speak to anyone other than the patient for history (EMS, parent, family, police, friend...)? What history was obtained from this source @ -No Did you review nursing and triage notes (agree or disagree)? Why? @ -I reviewed and agree with nursing and triage notes Were old charts reviewed (outside hosp., previous admission, EMS record, old EKG, old radiological studies, urgent care reports/EKG's, [place] health [facility] facility records)? Report findings @ -No old charts were reviewed Differential Diagnosis (chest pain, altered mental status, abdominal pain women, abdominal pain men, vaginal bleeding, weakness, fever, dyspnea, syncope, headache, dizziness, GI bleed, back pain, seizure, CVA, palpatations, mental health, musculoskeletal)? @ -Differential Abdominal Pain Men: Appendicitis, cholecystitis, diverticulosis, ischemic bowel, pancreatitis, hepatitis, UTI, gastroenteritis, AAA, incarcerated hernia, bowel obstruction, constipation, inflammatory bowel, hepatitis, peptic ulcer disease, splenic infarction, perforated viscus, testicular torsion, this is not meant to be an all-inclusive list EKG interpreted by me (3pts min.). @ -None X-rays interpreted by me (1pt min.). @ -None done CT interpreted by me (1pt min.). @ -See pelvis showing evidence of possible very mild active Crohn's just proximal to the ostomy U/S interpreted by me (1pt. min.). @ -None done What testing was considered but not performed or refused? (CT, X-rays, U/S, labs)? Why? @ -None What meds were considered but not given or refused? Why? @ -None Did you discuss the management of the patient with other professionals (professionals i.e. , PA, PERFORMANCE INSTRUCTOR, lab, RT, psych nurse, dialysis social worker, automotive technology instructor, teacher, police commanding officer, case therapist)? Give summary @ -No Was smoking cessation discussed for >3mins.? @ -No Was critical care preformed (if so, how long)? @ -No Were there social determinants of health that impacted care today? How? (Homelessness, low income, unemployed, alcoholism, drug addiction, transportation, low edu. Level, literacy, decrease access to med. care, nursing home, rehab)? @ -No Was there de-escalation of care discussed even if they declined (Discuss DNR or withdrawal of care, Hospice)? DNR status @ -No What co-morbidities impacted this encounter? (DM, HTN, Smoking, COPD, CAD, Cancer, CVA, ARF, Chemo, Hep., AIDS, mental health diagnosis, sleep apnea, morbid obesity)? @ -Crohn's disease Was patient admitted / discharged? Hospital course, mention meds given and route, prescriptions, significant lab abnormalities, going to OR and other pertinent info. @ -This patient's upper studies unremarkable CT shows very mild active Crohn's h e is to follow-up with GI doctor, patient is attempted to fill his prescription for his medications and return for as discussed. Undiagnosed new problem with uncertain prognosis? @ -No Drug Therapy requiring intensive monitoring for toxicity (Heparin, Nitro, Insulin, Cardizem)? @ -No Were any procedures done? @ -No Diagnosis/symptom? @Crohn's disease, abdominal pain Acute, or Chronic, or Acute on Chronic? @ -Acute Uncomplicated (without systemic symptoms) or Complicated (systemic symptoms)? @ -Complicated Side effects of treatment? @ -No Exacerbation, Progression, or Severe Exacerbation? @ -Exacerbation Poses a threat to life or bodily function? How? (Chest pain, USA, [place], pneumonia, PE, COPD, DKA, ARF, appy, cholecystitis, CVA, Diverticulitis, Homicidal, Suicidal, threat to staff... and all critical care pts) @ -No - Lab Data Result diagrams: 09/14/24 06:25 09/14/24 06:25 Lab Results 09/14/24 09/14/24 09/14/24 Range/Units :25 06: 06:25 WBC 6.96 (4.50-10.00) 10*3/uL RBC 4.30 L (4.40-5.60) 10*6/uL Hgb 12.6 L (13.0-17.0) g/dL Hct 35.4 L (39.6-50.0) % MCV 82.3 (80.0-97.0) fL MCH 29.3 (27.0-32.0) pg MCHC 35.6 (32.0-37.0) g/dL MPV 9.7 (9.5-12.2) fL Immature Gran % (Auto) 0.1 % Immature Gran # 0.01 (0.00-0.04) 10*3/uL Sodium 138 (137-145) mmol/L Potassium 3.9 (3.5-5.1) mmol/L Chloride 107 (98-107) mmol/L Carbon Dioxide 24 (22-30) mmol/L Anion Gap 7 mmol/L BUN 8 L (9-20) mg/dL Creatinine 0.65 L (0.66-1.25) mg/dL Est GFR (CKD-EPI)AfAm >90 (>60 ml/min/1.73 sqM) Est GFR (CKD-EPI)NonAf >90 (>60 ml/min/1.73 sqM) Glucose 82 (74-99) mg/dL Plasma Lactic Acid Patrice 1.2 (0.7-2.0) mmol/L Calcium 9.0 (8.4-10.2) mg/dL Total Bilirubin 1.0 (0.2-1.3) mg/dL AST 40 (17-59) U/L ALT 25 (4-49) U/L Alkaline Phosphatase 49 (38-126) U/L Total Protein 7.3 (6.3-8.2) g/dL Albumin 3.9 (3.5-5.0) g/dL Lipase 101 (23-300) U/L Urine Color Urine Appearance (Clear) Urine pH (5.0-8.0) Ur Specific [place] (1.001-1.035) Urine Protein (Negative) Urine Glucose (UA) (Negative) Urine Ketones (Negative) Urine Blood (Negative) Urine Nitrite (Negative) Urine Bilirubin (Negative) Urine Urobilinogen (<2.0) mg/dL Ur Leukocyte Esterase (Negative) 09/14/24 Range/Units 06:56 WBC (4.50-10.00) 10*3/uL RBC (4.40-5.60) 10*6/uL Hgb (13.0-17.0) g/dL Hct (39.6-50.0) % MCV (80.0-97.0) fL MCH (27.0-32.0) pg MCHC (32.0-37.0) g/dL MPV (9.5-12.2) fL Immature Gran % (Auto) % Immature Gran # (0.00-0.04) 10*3/uL Sodium (137-145) mmol/L Potassium (3.5-5.1) mmol/L Chloride (98-107) mmol/L Carbon Dioxide (22-30) mmol/L Anion Gap mmol/L BUN (9-20) mg/dL Creatinine (0.66-1.25) mg/dL Est GFR (CKD-EPI)AfAm (>60 ml/min/1.73 sqM) Est GFR (CKD-EPI)NonAf (>60 ml/min/1.73 sqM) Glucose (74-99) mg/dL Plasma Lactic Acid Patrice (0.7-2.0) mmol/L Calcium (8.4-10.2) mg/dL Total Bilirubin (0.2-1.3) mg/dL AST (17-59) U/L ALT (4-49) U/L Alkaline Phosphatase (38-126) U/L Total Protein (6.3-8.2) g/dL Albumin (3.5-5.0) g/dL Lipase (23-300) U/L Urine Color Yellow Urine Appearance Clear (Clear) Urine pH 6.0 (5.0-8.0) Ur Specific [place] 1.019 (1.001-1.035) Urine Protein Negative (Negative) Urine Glucose (UA) Negative (Negative) Urine Ketones Negative (Negative) Urine Blood Negative (Negative) Urine Nitrite Negative (Negative) Urine Bilirubin Negative (Negative) Urine Urobilinogen <2.0 (<2.0) mg/dL Ur Leukocyte Esterase Negative (Negative) Disposition Clinical Impression: Abdominal pain, Exacerbation of Crohn's disease Disposition: HOME SELF-CARE Condition: Stable Instructions (If sedation given, give patient instructions): Abdominal Pain (ED) Additional Instructions: Please return to the Emergency Department if symptoms worsen or any other concerns. Prescriptions: predniSONE 50 mg PO DAILY #5 tab Is patient prescribed a controlled substance at d/c from ED?: No Referrals: None,Stated [Primary Care Provider] - 1-2 days Time of Disposition: 08:09
[2024-09-14 06:56] LABS: ALT 25 U/L (4-49); AST 40 U/L (17-59); African American GFR (CKD) >90 (>60 ml/min/1.73 sqM); Albumin 3.9 g/dL (3.5-5.0); Anion Gap 7 mmol/L; Blood Urea Nitrogen 8 mg/dL (9-20); Carbon Dioxide 24 mmol/L (22-30); Chloride 107 mmol/L (98-107); Glucose 82 mg/dL (74-99); Lipase 101 U/L (23-300); Non-African American GFR(CKD) >90 (>60 ml/min/1.73 sqM); Sodium 138 mmol/L (137-145); Total Protein 7.3 g/dL (6.3-8.2)
[2024-09-14] MEDS: HYDROmorphone 0.5 MG/0.5 ML SYRINGE IVP STA ×2 (06:57→08:18)
[2024-09-14] MEDS: PANTOPRAZOLE 40 MG/10 ML VIAL IVP STA (06:57)
[2024-09-14] MEDS: ONDANSETRON 4 MG/2 ML VIAL IVP STA (06:57)
[2024-09-14 07:00] LABS: Appearance,Urine Clear (Clear); Bilirubin,Urine Negative (Negative); Blood,Urine Negative (Negative); Color,Urine Yellow; Glucose,Urine (UA) Negative (Negative); Ketones,Urine Negative (Negative); Leukocyte Esterase,Urine Negative (Negative); Nitrite,Urine Negative (Negative); Protein,Urine Negative (Negative); Specific Gravity,Urine 1.019 (1.001-1.035); Urobilinogen,Urine <2.0 mg/dL (<2.0)
[2024-09-14] MEDS: SODIUM CHLORIDE 0.9% 1,000 ML IV ONE (07:03)
[2024-09-14 07:06] LABS: Alkaline Phosphatase 49 U/L (38-126); Potassium 3.9 mmol/L (3.5-5.1)
[2024-09-14 07:21] LABS: Basophils # (A) 0.06 10*3/uL (0.00-0.10); Basophils % (A) 0.9 %; Eosinophils # (A) 0.22 10*3/uL (0.04-0.35); Eosinophils % (A) 3.2 %; HCT 35.4 % (39.6-50.0); HGB 12.6 g/dL (13.0-17.0); Lymphocytes # (A) 1.03 10*3/uL (0.90-5.00); Lymphocytes % (A) 14.8 %; MCH 29.3 pg (27.0-32.0); MCHC 35.6 g/dL (32.0-37.0); MCV 82.3 fL (80.0-97.0); Mean Platelet Volume 9.7 fL (9.5-12.2); Monocytes # (A) 0.78 10*3/uL (0.20-1.00); Monocytes % (A) 11.2 %; Neutrophils # (A) 4.86 10*3/uL (1.80-7.70); Neutrophils % (A) 69.8 %; Platelet Count 276 10*3/uL (140-440); RDW 13.7 % (11.5-14.5); WBC 6.96 10*3/uL (4.50-10.00)
--- NOTE | 2024-09-14 08:01 | CT ---
EXAMINATION TYPE: CT abdomen pelvis w con DATE OF EXAM: 09/14/2024 7:22 AM COMPARISON: CT abdomen pelvis dating back to 02/02/2024. CLINICAL INDICATION: Male, 34 years old with history of abdominal pain; pain, history of [place] TECHNIQUE: Axial CT abdomen pelvis w con;Sagittal and coronal reformats were created on a separate w orkstation. Contrast used:100 mL of Isovue 300 with IV Contrast, (none if empty) Oral contrast used: without Oral Contrast (none if empty) CT DLP: 701.6 mGycm, Automated exposure control for dose reduction was used. FINDINGS: LOWER CHEST: Unremarkable ABDOMEN LIVER: Unremarkable GALLBLADDER AND BILE DUCTS: Unremarkable. PANCREAS: Unremarkable. SPLEEN: Unremarkable. ADRENAL GLANDS: Unremarkable. KIDNEYS AND URETERS: No evidence of hydronephrosis or obstructing renal calculus. The ureters are unr emarkable. PELVIS BLADDER: No evidence for wall thickening or mass given limitations of exam. REPRODUCTIVE: Unremarkable. ABDOMEN & PELVIS STOMACH AND BOWEL: No evidence of bowel obstruction. Postsurgical changes cecum/terminal ileum. Left lower quadrant colostomy present. Hyperemia of the colon just proximal to where the ostomy exits the body. Best appreciated on coronal imaging with mild prominence of the brown and submitted adjacent mi ld fat stranding. PERITONEUM/RETROPERITONEUM: No evidence of pneumoperitoneum or free fluid. VASCULATURE: No evidence of aortic aneurysm. MUSCULOSKELETAL: No acute osseous abnormalities, irregular sclerotic lesion in the proximal left femu r unchanged dating back to 02/02/2024 CT. LYMPH NODES: No gross evidence for lymphadenopathy. SOFT TISSUE/ABDOMINAL WALL: Parastomal hernia around the ostomy. IMPRESSION: 1. Left lower quadrant ostomy with postsurgical change the bowel. No evidence for bowel obstruction. There is evidence for mild active inflammation of the colon just proximal to the ostomy. Correlate f or active Crohn's. No evidence for intraabdominal abscess. 2. Small parastomal hernia. 3. Sclerotic somewhat sclerotic lesion in the proximal left femur possibly representing enchondroma is unchanged dating back to 02/02/2024. [facility], , 09/14/2024 7:59 AM
[2024-09-14] MEDS: ACET/COD 300 MG/30 MG STARTER PACK 6 TAB BTL PO STA (08:17)
[2024-09-14 08:19] VITALS: BP 124/81; PULSE 84
== END 2024-09-14 08:24 | disposition home or self-care (01) ==
LOC: EC 05:45
DX: K50.90 Crohn's disease, unspecified, without complications (principal); R10.9 Unspecified abdominal pain; F17.290 Nicotine dependence, other tobacco product, uncomplicated
CPT/HCPCS: 36415; 80053; 83605; 83690; 85025; 81003; 74177; 99284; 96374; 96375; 96361; J2405; J1171; Q9967; J2470

== ENCOUNTER 2024-12-02 15:34 | Emergency (ER) | payer OTHER ==
--- NOTE | 2024-12-02 16:28 | ED ---
Abdominal Pain HPI - General Chief Complaint: Abdominal Pain Stated Complaint: Post op check Time Seen by Provider: 12/02/24 15:50 Source: patient Mode of arrival: ambulatory Limitations: no limitations - History of Present Illness Initial Comments: This patient is a 34-year-old man who arrives here from [place] to have evaluation of pain at his ostomy site and passing some blood there. The patient notes that he has a left upper abdomen ostomy as a result of having Crohn's disease. He states that he was in the hospital in [place] a little over 2 weeks ago and believes that they performed a revision of his ostomy on the . He describes having prolapse of the bowel through his ostomy and that it required revision. Patient subsequently discharged and is now at [place]. He states that he has had a little bit of pain when he passes some hard stool through the ostomy and has noted some blood. Patient denies vomiting. No change in urination. No fever or chills. No abdominal pain other than when he has passed some stool. MD Complaint: abdominal pain -: days(s) Location: LUQ (At ostomy site) Radiation: none Migration to: no migration Severity: mild Quality: sharp Consistency: intermittent, now resolved Improves With: nothing Worsens With: bowel movement Associated Symptoms: denies other symptoms - Related Data Previous Rx's Medication Instructions Recorded Amoxic-Pot Clav 875-125Mg 1 tab PO BID 1 Days #14 tab 02/02/24 [Augmentin 875-125] levoFLOXacin 500 mg PO DAILY #10 tab 02/02/24 Levofloxacin [Levaquin] 750 mg PO DAILY 7 Days #7 tab 03/26/24 metroNIDAZOLE [Flagyl] 500 mg PO TID 7 Days #21 tab 03/26/24 predniSONE [Deltasone] 40 mg PO DAILY #8 tab 04/10/24 predniSONE [Deltasone] 40 mg PO DAILY #8 tab 05/02/24 predniSONE 10 mg PO DIRECTED 12 Days #30 05/22/24 tab predniSONE [Deltasone] 40 mg PO DAILY #8 tab 09/02/24 predniSONE 50 mg PO DAILY #5 tab 09/14/24 Allergies Allergy/AdvReac Type Severity Reaction Status Date / Time No Known Allergies Allergy Verified 12/02/24 15:39 Review of Systems ROS Statement: Those systems with pertinent positive or pertinent negative responses have been documented in the HPI. ROS Other: All systems not noted in ROS Statement are negative. Constitutional: Denies: fever, chills Respiratory: Denies: cough, dyspnea Cardiovascular: Denies: chest pain, palpitations, edema Gastrointestinal: Reports: as per HPI, abdominal pain, other (Blood from ostomy). Denies: nausea, vomiting, diarrhea Genitourinary: Denies: dysuria, hematuria Musculoskeletal: Denies: back pain Skin: Denies: rash Neurological: Denies: headache, weakness, numbness Hematological/Lymphatic: Denies: easy bleeding Past Medical History Additional Past Medical History / Comment(s): crohns disease History of Any Multi-Drug Resistant Organisms: C-DIFF Date of last positivie culture/infection: 2020 MDRO Source:: stool Past Surgical History: Bowel Resection Additional Past Surgical History / Comment(s): colostomy, illeostomy and reversal, stoma revision, Past Psychological History: No Psychological Hx Reported Smoking Status: Current every day smoker, Vaper Past Alcohol Use History: None Reported Past Drug Use History: None Reported General Exam Limitations: no limitations General appearance: alert, in no apparent distress Head exam: Present: atraumatic, normocephalic Eye exam: Present: normal appearance. Absent: scleral icterus, conjunctival injection ENT exam: Present: normal oropharynx Neck exam: Present: normal inspection Respiratory exam: Present: normal lung sounds bilaterally. Absent: respiratory distress, wheezes, rales, rhonchi, stridor, accessory muscle use Cardiovascular Exam: Present: regular rate, normal rhythm, normal heart sounds. Absent: systolic murmur, diastolic murmur, rubs, gallop GI/Abdominal exam: Present: soft, other (The patient's ostomy has normal appearance.). Absent: distended, tenderness, guarding, rebound, rigid, mass Extremities exam: Present: normal inspection, normal capillary refill. Absent: pedal edema, calf tenderness Back exam: Present: normal inspection. Absent: CVA tenderness (R), CVA tenderness (L) Neurological exam: Present: alert Skin exam: Present: warm, dry, intact, normal color. Absent: rash Course Vital Signs 12/02/24 12/02/24 12/02/24 15:36 15:39 17:39 Temperature 97.6 F Pulse Rate 86 65 75 Respiratory 18 20 20 Rate Blood Pressure 170/96 135/78 140/90 O2 Sat by Pulse 99 98 98 Oximetry 12/02/24 12/02/24 20:17 21:54 Temperature 97.2 F L Pulse Rate 81 80 Respiratory 16 18 Rate Blood Pressure 152/97 158/98 O2 Sat by Pulse 98 98 Oximetry Medical Decision Making - Medical Decision Making This patient is a 34-year-old man here from [facility] to have evaluation of his ostomy. The patient's history and physical exam are not suggestive of acute surgical condition. There is no blood evident from the ostomy and his lab workup is unremarkable as well. I did obtain the patient's surgical record from [facility]. Discussed with him that he does need to follow with his surgeon. At this point patient is stable for return to [place]. Was pt. sent in by a medical professional or institution (, PA, HARDBOARD PANEL PRINTER, urgent care, hospital, or halfway...) When possible be specific @ -[Yes, patient sent from [place] to have further evaluation Did you speak to anyone other than the patient for history (EMS, parent, family, police, friend...)? What history was obtained from this source @ -[No] Did you review nursing and triage notes (agree or disagree)? Why? @ -[I reviewed and agree with nursing and triage notes] Were old charts reviewed (outside hosp., previous admission, EMS record, old EKG, old radiological studies, urgent care reports/EKG's, halfway records)? Report findings @ -[No old charts were reviewed] Differential Diagnosis (chest pain, altered mental status, abdominal pain women, abdominal pain men, vaginal bleeding, weakness, fever, dyspnea, syncope, headache, dizziness, GI bleed, back pain, seizure, CVA, palpatations, mental health, musculoskeletal)? @ -[MDM differential abdominal pain EKG interpreted by me (3pts min.). @ -[As above] X-rays interpreted by me (1pt min.). @ -[None done] CT interpreted by me (1pt min.). @ -[None done] U/S interpreted by me (1pt. min.). @ -[None done] What testing was considered but not performed or refused? (CT, X-rays, U/S, labs)? Why? @ -[None] What meds were considered but not given or refused? Why? @ -[None] Did you discuss the management of the patient with other professionals (professionals i.e. , PA, HARDBOARD PANEL PRINTER, lab, RT, psych nurse, social work program coordinator, ginseng farmer, teacher, engineering officer, mental health case manager)? Give summary @ -[No] Was smoking cessation discussed for >3mins.? @ -[No] Was critical care preformed (if so, how long)? @ -[No] Were there social determinants of health that impacted care today? How? (Homelessness, low income, unemployed, alcoholism, drug addiction, t ransportation, low edu. Level, literacy, decrease access to med. care, nursing home, rehab)? @ -[No] Was there de-escalation of care discussed even if they declined (Discuss DNR or withdrawal of care, Hospice)? DNR status @ -[No] What co-morbidities impacted this encounter? (DM, HTN, Smoking, COPD, CAD, C ancer, CVA, ARF, Chemo, Hep., AIDS, mental health diagnosis, sleep apnea, morbid obesity)? @ -[Recent revision of the patient's colostomy Was patient admitted / discharged? Hospital course, mention meds given and route, prescriptions, significant lab abnormalities, going to OR and other pertinent info. @ -[See above Undiagnosed new problem with uncertain prognosis? @ -[No] Drug Therapy requiring intensive monitoring for toxicity (Heparin, Nitro, Insulin, Cardizem)? @ -[No] Were any procedures done? @ -[No] Diagnosis/symptom? @ -[Acute abdominal pain Reported history of GI bleeding Acute, or Chronic, or Acute on Chronic? @ -[Acute Uncomplicated (without systemic symptoms) or Complicated (systemic symptoms)? @ -[Uncomplicated Side effects of treatment? @ -[No] Exacerbation, Progression, or Severe Exacerbation? @ -[No] Poses a threat to life or bodily function? How? (Chest pain, [place], [place], pneumonia, PE, COPD, DKA, ARF, appy, cholecystitis, CVA, Diverticulitis, Homicidal, Suicidal, threat to staff... and all critical care pts) @ -[No] All treatments are based on ideal body weight as in ED triage - Lab Data Result diagrams: 12/02/24 16:15 12/02/24 16:15 Lab Results 12/02/24 12/02/24 Range/Units 16:15 16:15 WBC 13.49 H (4.50-10.00) 10*3/uL RBC 3.86 L (4.40-5.60) 10*6/uL Hgb 11.3 L (13.0-17.0) g/dL Hct 32.8 L (39.6-50.0) % MCV 85.0 (80.0-97.0) fL MCH 29.3 (27.0-32.0) pg MCHC 34.5 (32.0-37.0) g/dL Plt Count 334 (140-440) 10*3/uL MPV 11.3 (9.5-12.2) fL Immature Gran % (Auto) 1.5 % Neutrophils % 88.8 % Lymphocytes % 6.4 % Monocytes % 3.0 % Eosinophils % 0.0 % Basophils % 0.3 % Immature Gran # 0.20 H (0.00-0.04) 10*3/uL Neutrophils # 11.97 H (1.80-7.70) 10*3/uL Lymphocytes # 0.87 L (0.90-5.00) 10*3/uL Monocytes # 0.41 (0.20-1.00) 10*3/uL Eosinophils # 0.00 L (0.04-0.35) 10*3/uL Basophils # 0.04 (0.00-0.10) 10*3/uL Sodium 140 (137-145) mmol/L Potassium 4.0 (3.5-5.1) mmol/L Chloride 104 (98-107) mmol/L Carbon Dioxide 26 (22-30) mmol/L Anion Gap 10 mmol/L BUN 14 (9-20) mg/dL Creatinine 0.56 L (0.66-1.25) mg/dL Est GFR (CKD-EPI)AfAm >90 (>60 ml/min/1.73 sqM) Est GFR (CKD-EPI)NonAf >90 (>60 ml/min/1.73 sqM) Glucose 133 H (74-99) mg/dL Calcium 9.6 (8.4-10.2) mg/dL Total Bilirubin 0.1 L (0.2-1.3) mg/dL AST 23 (17-59) U/L ALT 27 (4-49) U/L Alkaline Phosphatase 69 (38-126) U/L C-Reactive Protein 0.5 (<1.0) mg/dL Total Protein 6.9 (6.3-8.2) g/dL Albumin 3.8 (3.5-5.0) g/dL Amylase 49 (30-110) U/L Lipase 92 (23-300) U/L Disposition Clinical Impression: Abdominal pain Disposition: HOME SELF-CARE Condition: Good Instructions (If sedation given, give patient instructions): Abdominal Pain (ED) Additional Instructions: As we discussed, call Dr. Jonathan Anthony to set up follow-up. Per the reading of the operative note your stitches are Vicryl and that means that they are either permanent or will come out on their own. Return to the emergency department here if any of the symptoms we discussed develop. Is patient prescribed a controlled substance at d/c from ED?: No Referrals: None,Stated [Primary Care Provider] - 1-2 days
[2024-12-02] MEDS: KETOROLAC 15 MG/ML 1 ML VIAL IVP STA (16:34)
[2024-12-02 17:21] LABS: Basophils # (A) 0.04 10*3/uL (0.00-0.10); Basophils % (A) 0.3 %; Eosinophils # (A) 0.00 10*3/uL (0.04-0.35); Eosinophils % (A) 0.0 %; HCT 32.8 % (39.6-50.0); HGB 11.3 g/dL (13.0-17.0); Lymphocytes # (A) 0.87 10*3/uL (0.90-5.00); Lymphocytes % (A) 6.4 %; MCH 29.3 pg (27.0-32.0); MCHC 34.5 g/dL (32.0-37.0); MCV 85.0 fL (80.0-97.0); Monocytes # (A) 0.41 10*3/uL (0.20-1.00); Monocytes % (A) 3.0 %; Neutrophils # (A) 11.97 10*3/uL (1.80-7.70); Neutrophils % (A) 88.8 %; Platelet Count 334 10*3/uL (140-440); RBC 3.86 10*6/uL (4.40-5.60); RDW 13.5 % (11.5-14.5); WBC 13.49 10*3/uL (4.50-10.00)
[2024-12-02 17:31] LABS: ALT 27 U/L (4-49); AST 23 U/L (17-59); African American GFR (CKD) >90 (>60 ml/min/1.73 sqM); Albumin 3.8 g/dL (3.5-5.0); Alkaline Phosphatase 69 U/L (38-126); Amylase 49 U/L (30-110); Anion Gap 10 mmol/L; Blood Urea Nitrogen 14 mg/dL (9-20); Calcium 9.6 mg/dL (8.4-10.2); Carbon Dioxide 26 mmol/L (22-30); Chloride 104 mmol/L (98-107); Glucose 133 mg/dL (74-99); Lipase 92 U/L (23-300); Non-African American GFR(CKD) >90 (>60 ml/min/1.73 sqM); Potassium 4.0 mmol/L (3.5-5.1); Sodium 140 mmol/L (137-145); Total Protein 6.9 g/dL (6.3-8.2)
[2024-12-02 21:57] VITALS: BP 158/98; PULSE 80; RESP 18; TEMP 97.2
== END 2024-12-02 21:56 | disposition home or self-care (01) ==
LOC: EC 15:34
DX: R10.11 Right upper quadrant pain (principal); K50.90 Crohn's disease, unspecified, without complications; F17.290 Nicotine dependence, other tobacco product, uncomplicated
CPT/HCPCS: 36415; 80053; 82150; 83690; 85025; 86140; 99284; 96374; J1885